=== PATIENT | female | born 1990 | race Native Hawaiian/Other Pacific Islander ===

== ENCOUNTER 2019-06-03 12:43 | Emergency (ER) | payer OTHER, MEDICAID, SELFPAY ==
[2019-06-03 12:48] VITALS: BP 160/89; PULSE 89; RESP 18; TEMP 36.4; O2SAT 99; BMI 33.9
--- NOTE | 2019-06-03 16:07 | PC.NURSE ---
\attempted to bring to room - no answer
== END 2019-06-03 17:39 | disposition left against medical advice (07) ==
PROVIDERS: Emergency Provider Emergency Medicine
DX: R10.9 Unspecified abdominal pain (principal)
CPT/HCPCS: 99281

== ENCOUNTER 2019-12-09 13:45 | Emergency (ER) | payer OTHER, MEDICAID, SELFPAY ==
[2019-12-09 13:51] VITALS: BP 113/64; PULSE 80; RESP 18; TEMP 36.7; O2SAT 98; BMI 33.9
--- NOTE | 2019-12-09 14:00 | DI.RAD.S_ITS ---
PROCEDURE: XR RIBS BI MIN 4V W CXR1V INDICATIONS: Rib pain/SOb TECHNIQUE: Two views of the left ribs and two views of the right ribs were obtained, along with a single view chest. COMPARISON: None. FINDINGS: Surgical changes and devices: None. Bones and chest wall: No acute displaced fractures or dislocations. No suspicious bony lesions. Overlying soft tissues appear unremarkable. Lungs and pleura: No pleural effusions or pneumothorax. Lungs appear clear. Mediastinum: Mediastinal contours appear normal. Heart size is normal. IMPRESSION: No displaced rib fracture. No pleural effusion or pneumothorax. Dictated by: Edward Escalera M.D. on 12/09/2019 at 15:28 Approved by: Edward Escalera M.D. on 12/09/2019 at 15:31
--- NOTE | 2019-12-09 17:18 | DI.RAD.S_ITS ---
PROCEDURE: XR THORACIC SPINE 3V INDICATIONS: pain sp fall TECHNIQUE: 3 views of the thoracic spine were acquired. COMPARISON: None. FINDINGS: Bones: No fractures or dislocations. No suspicious bony lesions. Visualized ribs are intact. Multilevel endplate osteophytes. Soft tissues: No paravertebral stripe thickening. IMPRESSION: Multilevel degenerative disc disease. No acute fracture. No osseous lesion. If symptoms and/or clinical suspicion for pathology persist, further assessment with repeat, or advanced imaging (e.g., CT, MRI, or bone scan) may be helpful for further assessment. Dictated by: Magnolia Talley M.D. on 12/09/2019 at 18:03 Approved by: Magnolia Talley M.D. on 12/09/2019 at 18:04
--- NOTE | 2019-12-09 17:18 | DI.RAD.S_ITS ---
PROCEDURE: XR LUMBAR SPINE 2-3V INDICATIONS: pain sp fall TECHNIQUE: 3 views of the lumbar spine were acquired. COMPARISON: None. FINDINGS: Bones: 5 [id number] vertebrae are present. There is normal bony alignment. No vertebral body compression fractures. No suspicious bony lesions. Mild multilevel endplate osteophytes. Multilevel facet hypertrophy throughout the mid and lower lumbar spine. Soft tissues: Overlying bowel gas pattern is normal. No suspicious soft tissue calcifications. IMPRESSION: Multilevel degenerative disc and facet disease. No acute fracture. No osseous lesion. If symptoms and/or clinical suspicion for pathology persist, further assessment with repeat, or advanced imaging (e.g., CT, MRI, or bone scan) may be helpful for further assessment. Dictated by: Magnolia Talley M.D. on 12/09/2019 at 18:02 Approved by: Magnolia Talley M.D. on 12/09/2019 at 18:03
[2019-12-09 17:46] LABS: UR Morphine/Opiate cutoff 300 Negative (Negative); Ur Creatinine Normal (Normal); Ur Specific Gravity Normal (Normal); Urine Amphetamines Negative (Negative); Urine Barbiturates Negative (Negative); Urine Benzodiazepines Negative (Negative); Urine Cocaine Negative (Negative); Urine MDMA Negative (Negative); Urine Methadone Negative (Negative); Urine Methamphetamines Negative (Negative); Urine Oxycodone Negative (Negative); Urine Phencyclidine Negative (Negative); Urine Tetrahydrocannabinol Negative (Negative); Urine Tricyclic Antidepressant Negative (Negative); Urine pH Normal (Normal)
[2019-12-09] MEDS: LIDOCAINE PATCH 1 EACH ADH..PATCH TOP (18:40)
[2019-12-09] MEDS: KETOROLAC 60 MG/2 ML VIAL IM (18:41)
[2019-12-09] MEDS: CYCLOBENZAPRINE 10 MG TABLET PO (18:41)
[2019-12-09 18:57] VITALS: BP 128/81; PULSE 75; O2SAT 100
[2019-12-09 19:00] VITALS: BP 123/74; PULSE 75; O2SAT 98
--- NOTE | 2019-12-09 19:15 | ED.BACK ---
HPI - Back Pain/Injury <CARLEEN Fu - Last Filed: 12/09/19 21:05> General Chief Complaint: Back Pain/Injury Stated Complaint: Possible Cracked Ribs, SOB, Vomiting Blood Time Seen by Provider: 12/09/19 16:34 Source: patient Mode of arrival: Ambulatory Limitations: no limitations History of Present Illness HPI Narrative: The patient is a 29-year-old female nonsmoker presents with a chief complaint of chest wall pain and possible cracked ribs as well as back pain. She states that she tried to stop her neighbor from falling down the stairs about 2 weeks ago, and her neighbor landed on her. She denies any passing out, or any C-spine tenderness. She states that she has been consistently getting worse since this happened. She estimates that they went down at least 10 steps. This occurred 2 weeks ago and she has not been evaluated since this happened. She states that this weekend she started helping cut and lift would when she started having a lot of stiffness in her back. She states that it hurts to take a deep breath, so she feels like she is short of breath. She denies any other symptoms, any chest pain, numbness, incontinence of bowel or incontinence of bladder. She did know on check-in that she was vomiting blood but denies this on my interview. Related Data Previous Rx's Medication Instructions Recorded cyclobenzaprine 10 mg PO TID PRN #14 tab 12/09/19 ketorolac 10 mg PO TID PRN #15 tab 12/09/19 Allergies Allergy/AdvReac Type Severity Reaction Status Date / Time penicillin G Allergy Unknown Unverified 12/09/19 13:59 Review of Systems <CARLEEN Fu - Last Filed: 12/09/19 21:05> Review of Systems Narrative: GENERAL: Denies chills, fatigue, malaise, fever, sweats. HEENT: Denies sinus pain, ear pain, sore throat, difficulty swallowing, dizziness. RESPIRATORY: See HPI CARDIOVASCULAR: Denies chest pain, palpitations, orthopnea, edema, GASTROINTESTINAL: Denies nausea, vomiting, abdominal pain, diarrhea, constipation, melena. : Denies dysuria, frequency, incontinence, hematuria, urinary retention. MUSCULOSKELETAL: See HPI SKIN: Denies rash, skin lesions, or other NEUROLOGIC: Denies weakness, headache, numbness, change in speech, confusion, seizures, incoordination. PSYCHIATRIC: No concerning psychosocial issues. 12 point review of systems is negative except for those stated above Patient History <Mile VillanuevaLARISSA-STUART - Last Filed: 12/09/19 21:05> Social History Smoking Status: Never smoker Smoking Status: Never smoker Substance Use Type: does not use Exam <Mile VillanuevaJUANITA - Last Filed: 12/09/19 21:05> Narrative Exam Narrative: GENERAL: This is a well-nourished, well-developed patient, in no acute distress HEAD: Atraumatic. Normocephalic. No temporal or scalp tenderness. EYES: Pupils equal round and reactive. Extraocular motions intact. No scleral icterus. No injection or drainage. ENT: Nose without bleeding, purulent drainage or septal hematoma. Wearing a mask. Airway patent. NECK: Trachea midline. No JVD or lymphadenopathy. Supple, nontender, no meningeal signs. CARDIOVASCULAR: Regular rate and rhythm RESPIRATORY: Clear to auscultation. Breath sounds equal bilaterally. No wheezes, rales, or rhonchi. No cough. No increased respiratory effort. No accessory muscle use. Speaking full sentences. GASTROINTESTINAL: Abdomen soft, non-tender, nondistended. No hepato-splenomegaly, or palpable masses. No guarding. EXTREMITIES: No clubbing, cyanosis, or edema. No joint tenderness, effusion, or edema noted. BACK: Cervical spine is Nontender without deformity or crepitance. T and L-spine are tender to palpation, bilateral paraspinal muscle tenderness to palpation over T and L-spine NEURO: AOx3. Stable gait. No gross cranial nerve deficit. SKIN: No rash or erythema on visible skin. No erythema or ecchymosis noted on lower mid back, neck or chest wall. No periorbital ecchymosis. No Nieves signs Initial Vital Signs Initial Vital Signs: Vital Signs Temperature 98.0 F 12/09/19 13:51 Pulse Rate 80 12/09/19 13:51 Respiratory Rate 18 12/09/19 13:51 Blood Pressure 113/64 12/09/19 13:51 Pulse Oximetry 98 12/09/19 13:51 <Rupal Cabrera MD - Last Filed: 12/17/19 08:28> Initial Vital Signs Initial Vital Signs: Vital Signs Temperature 98.0 F 12/09/19 13:51 Pulse Rate 80 12/09/19 13:51 Respiratory Rate 18 12/09/19 13:51 Blood Pressure 113/64 12/09/19 13:51 Pulse Oximetry 98 12/09/19 13:51 Scores <Mile CARLEEN VillanuevaBC - Last Filed: 12/09/19 21:05> GCS Arianna coma scale eye opening: Spontaneous Arianna coma scale verbal response: Orientated Arianna coma scale motor response: Obey commands [place] coma scale total score: 15 Course <JUANITA Fu - Last Filed: 12/09/19 21:05> Orders Ordered: Discontinued Medications Cyclobenzaprine HCl (Flexeril) 10 mg PO NOW ONE Stop: 12/09/19 18:23 Last Admin: 12/09/19 18:41 Dose: 10 mg Documented by: SURESH Ketorolac Tromethamine (Toradol) 60 mg IM NOW ONE Stop: 12/09/19 18:23 Last Admin: 12/09/19 18:41 Dose: 60 mg Documented by: SURESH Lidocaine (Lidoderm) 1 each TOP NOW ONE Stop: 12/09/19 18:23 Last Admin: 12/09/19 18:40 Dose: 1 each Documented by: SURESH Vital Signs Vital signs: Vital Signs - 8 hr 12/09/19 13:51 12/09/19 18:57 12/09/19 19:00 Temperature 98.0 F Pulse Rate 80 75 75 Respiratory Rate 18 Blood Pressure 113/64 128/81 123/74 Pulse Oximetry 98 100 98 12/09/19 19:43 Temperature Pulse Rate 88 Respiratory Rate 16 Blood Pressure 140/90 Pulse Oximetry 99 <Rupal Cabrera MD - Last Filed: 12/17/19 08:28> Orders Ordered: Discontinued Medications Cyclobenzaprine HCl (Flexeril) 10 mg PO NOW ONE Stop: 12/09/19 18:23 Last Admin: 12/09/19 18:41 Dose: 10 mg Documented by: SURESH Ketorolac Tromethamine (Toradol) 60 mg IM NOW ONE Stop: 12/09/19 18:23 Last Admin: 12/09/19 18:41 Dose: 60 mg Documented by: SURESH Lidocaine (Lidoderm) 1 each TOP NOW ONE Stop: 12/09/19 18:23 Last Admin: 12/09/19 18:40 Dose: 1 each Documented by: SURESH Vital Signs Vital signs: Vital Signs - 8 hr 12/09/19 13:51 12/09/19 18:57 12/09/19 19:00 Temperature 98.0 F Pulse Rate 80 75 75 Respiratory Rate 18 Blood Pressure 113/64 128/81 123/74 Pulse Oximetry 98 100 98 12/09/19 19:43 Temperature Pulse Rate 88 Respiratory Rate 16 Blood Pressure 140/90 Pulse Oximetry 99 MDM - Back Pain/Injury <JUANITA Fu - Last Filed: 12/09/19 21:05> Lab Data Labs: Lab Results 12/09/19 Range/Units 17:33 U Opiates 300ng/mL cut Negative (Negative) Ur Oxycodone Screen Negative (Negative) Urine Methadone Screen Negative (Negative) Ur Barbiturates Screen Negative (Negative) U Tricyclic Antidepress Negative (Negative) Ur Phencyclidine Scrn Negative (Negative) Ur Amphetamines Screen Negative (Negative) U Methamphetamines Scrn Negative (Negative) Ur MDMA Scrn (Ecstasy) Negative (Negative) U Benzodiazepines Scrn Negative (Negative) Urine Cocaine Screen Negative (Negative) U Marijuana (THC) Screen Negative (Negative) Point of Care Testing Test Results Negative Urine Dip Bedside Urine Glucose Negative Bedside Urine Bilirubin - Negative Bedside Urine Ketone - Negative Urine Specific [place] 1.025 Bedside Urine Occult Blood - Negative Bedside Urine pH 6.0 Bedside Urine Protein - Negative Bedside Urine Urobilinogen - Negative Bedside Urine Nitrite - Negative Bedside Urine Leukocytes - Negative Esterase Imaging Data Thoracic spine x-ray: Radiologist's Impression: [address] [place] [id number] XRay Report Signed Patient: Lluvia Martinez MMR#: [id number] : 1990Acct:[id number] Age/Sex: 29 / FDate of Service: 12/09/19 Loc: ED Accession Number: [id number] Procedure: XR thoracic spine 3V Ordering Provider: Mile Villanueva PROCEDURE: XR THORACIC SPINE 3V INDICATIONS: pain sp fall TECHNIQUE: 3 views of the thoracic spine were acquired. COMPARISON: None. FINDINGS: Bones: No fractures or dislocations. No suspicious bony lesions. Visualized ribs are intact. Multilevel endplate osteophytes. Soft tissues: No paravertebral stripe thickening. IMPRESSION: Multilevel degenerative disc disease. No acute fracture. No osseous lesion. If symptoms and/or clinical suspicion for pathology persist, further assessment with repeat, or advanced imaging (e.g., CT, MRI, or bone scan) may be helpful for further assessment. Dictated by: Magnolia Talley M.D. on 12/09/2019 at 18:03 Approved by: Magnolia Talley M.D. on 12/09/2019 at 18:04 Lumbar spine x-ray: Radiologist's Impression: [address] [place] [id number] XRay Report Signed Patient: Lluvia Martinez [facility]#: [id number] : 1990Acct:[id number] Age/Sex: 29 / FDate of Service: 12/09/19 Loc: ED Accession Number: [id number] Procedure: XR lumbar spine 2-3V Ordering Provider: Mile Villanueva- PROCEDURE: XR LUMBAR SPINE 2-3V INDICATIONS: pain sp fall TECHNIQUE: 3 views of the lumbar spine were acquired. COMPARISON: None. FINDINGS: Bones: 5 [id number] vertebrae are present. There is normal bony alignment. No vertebral body compression fractures. No suspicious bony lesions. Mild multilevel endplate osteophytes. Multilevel facet hypertrophy throughout the mid and lower lumbar spine. Soft tissues: Overlying bowel gas pattern is normal. No suspicious soft tissue calcifications. IMPRESSION: Multilevel degenerative disc and facet disease. No acute fracture. No osseous lesion. If symptoms and/or clinical suspicion for pathology persist, further assessment with repeat, or advanced imaging (e.g., CT, MRI, or bone scan) may be helpful for further assessment. Dictated by: Magnolia Talley M.D. on 12/09/2019 at 18:02 Approved by: Magnolia Talley M.D. on 12/09/2019 at 18:03 Rib x-ray: Radiologist's Impression: [address] [place] [id number] XRay Report Signed Patient: Lluvia Martinez [facility]#: [id number] : 1990Acct:[id number] Age/Sex: 29 / FDate of Service: 12/09/19 Loc: ED Accession Number: [id number] Procedure: XR ribs BI min 4V w CXR1V Ordering Provider: Rupal Cabrera MD PROCEDURE: XR RIBS BI MIN 4V W CXR1V INDICATIONS: Rib pain/SOb TECHNIQUE: Two views of the left ribs and two views of the right ribs were obtained, along with a single view chest. COMPARISON: None. FINDINGS: Surgical changes and devices: None. Bones and chest wall: No acute displaced fractures or dislocations. No suspicious bony lesions. Overlying soft tissues appear unremarkable. Lungs and pleura: No pleural effusions or pneumothorax. Lungs appear clear. Mediastinum: Mediastinal contours appear normal. Heart size is normal. IMPRESSION: No displaced rib fracture. No pleural effusion or pneumothorax. Dictated by: Edward Escalera M.D. on 12/09/2019 at 15:28 Approved by: Edward Escalera M.D. on 12/09/2019 at 15:31 MDM Narrative Medical decision making narrative: The patient is a 29-year-old female who presents 2 weeks after a fall down some stairs. She is GCS 15 and requesting pain medications immediately upon arrival. Thus drug skin was performed came back negative. Given her pain x-rays were taken of her ribs, T and L-spine. She has no neurological deficits, and this is 2 weeks out from an injury. Her x-rays came back with no acute findings. She feels much improved after the above-stated therapies negative her prescriptions thereof. I encouraged her to follow up with primary care provider in the next few days and come back to emergency department for any acute concerns such as neurological concerns. Patient has no questions or concerns upon discharge and states understanding of the return precautions of any acute concerns as well as follow-up care with a primary care provider. <Rupal Cabrera MD - Last Filed: 12/17/19 08:28> Lab Data Labs: Lab Results 12/09/19 Range/Units 17:33 U Opiates 300ng/mL cut Negative (Negative) Ur Oxycodone Screen Negative (Negative) Urine Methadone Screen Negative (Negative) Ur Barbiturates Screen Negative (Negative) U Tricyclic Antidepress Negative (Negative) Ur Phencyclidine Scrn Negative (Negative) Ur Amphetamines Screen Negative (Negative) U Methamphetamines Scrn Negative (Negative) Ur MDMA Scrn (Ecstasy) Negative (Negative) U Benzodiazepines Scrn Negative (Negative) Urine Cocaine Screen Negative (Negative) U Marijuana (THC) Screen Negative (Negative) Point of Care Testing Test Results Negative Urine Dip Bedside Urine Glucose Negative Bedside Urine Bilirubin - Negative Bedside Urine Ketone - Negative Urine Specific [place] 1.025 Bedside Urine Occult Blood - Negative Bedside Urine pH 6.0 Bedside Urine Protein - Negative Bedside Urine Urobilinogen - Negative Bedside Urine Nitrite - Negative Bedside Urine Leukocytes - Negative Esterase Discharge Plan Departure Patient Disposition: Home Clinical Impression: Lumbar back pain, Muscle spasm Thoracic back pain Qualifiers: Chronicity: acute Back pain laterality: bilateral Qualified Code(s): M54.6 - Pain in thoracic spine Discharge Date/Time: 12/09/19 19:51 Instructions: DI for Low Back Pain, DI for Back Spasm, DI for Back Strain or Sprain Activity Restrictions/Additional Instructions: As I discussed, your x-ray shows no acute fracture. This does not rule out a soft tissue injury such as a ligament or tendon injury. It is important that you follow up with primary care provider, especially if worsening or no improvement. There can be fractures that did not show up on initial x-ray. I have given you a prescription of ketorolac or Toradol. This is an NSAID. Do not combine it with other NSAIDs such as Aleve or ibuprofen. I suggest taking it with some food, as it can irritate your stomach. I also sent a prescription of cyclobenzaprine. This is a muscle relaxer. Please do not take this and drive or take this and drink. Please follow-up with primary care provider in the next few days. I have given you contact information [facility] health human resources safety manager. Please come back to the emergency department for any acute concerns Prescriptions: New ketorolac 10 mg tablet 10 mg PO TID PRN (Reason: pain) Qty: 15 RF: 0 cyclobenzaprine 10 mg tablet 10 mg PO TID PRN (Reason: muscle spasm) Qty: 14 RF: 0 Referrals: [facility] [Outside] <Rupal Cabrera MD - Last Filed: 12/17/19 08:28> [facility]: I was immediately available in the department for consultation throughout this patient's visit. I agree with documentation as above. Rupal Cabrera MD
[2019-12-09 19:43] VITALS: BP 140/90; PULSE 88; RESP 16; O2SAT 99
== END 2019-12-09 19:51 | disposition home or self-care (01) ==
PROVIDERS: Emergency Provider Nurse Practitioner Family
DX: M54.6 Pain in thoracic spine (principal); M62.830 Muscle spasm of back
CPT/HCPCS: 71111; 72072; 72100; 80305; 81003; 81025; 96372; 99283; 99284; J1885

== ENCOUNTER 2021-02-12 21:07 | Emergency (ER) | payer OTHER, MEDICAID, SELFPAY ==
[2021-02-12 21:12] VITALS: BP 182/110; PULSE 98; RESP 18; TEMP 36.9; O2SAT 99; BMI 38.7
--- NOTE | 2021-02-12 22:18 | ED_ITS ---
HPI - GI Bleed General Chief complaint: GI Bleed Stated complaint: rectal bleeding Time Seen by Provider: 02/12/21 21:23 Source: patient Mode of arrival: Ambulatory Limitations: no limitations History of Present Illness HPI Narrative: This is a 30-year-old female comes to the emergency department with complaint of difficulty with urination. Patient states she has not urinated for least 24-28 hours. Patient states she feels like she needs to urinate. She states that nothing seems to come she has not had a dribbling or leakage. She does not have pain. Patient denies any recent fevers. No chest pain or shortness of breath. No nausea or vomiting. She has had some blood oozing from the rectal area and had some pain recently particularly with wiping she has had hemorrhoids before but states this feels different. She had not appreciated any hematuria before, dysuria or frequency but does have a sense of urgency but no urination. No new vaginal bleeding or discharge. Patient states she has a history of a stroke she states that she followed up for this but was never placed on any medications. She denies any major surgeries. She is allergic to penicillin. She has a medical card that she presents that shows she also has a history of anemia. Related Data Previous Rx's Medication Instructions Recorded cyclobenzaprine 10 mg tablet 10 mg PO TID PRN #14 tab 12/09/19 ketorolac 10 mg tablet 10 mg PO TID PRN #15 tab 12/09/19 zinc oxide-cod liver oil 40 % 1 applic TOPICAL TID #57 g 02/13/21 topical paste (Desitin) Allergies Allergy/AdvReac Type Severity Reaction Status Date / Time penicillin G Allergy Unknown Unverified 02/12/21 21:14 Review of Systems Review of Systems ROS Unobtainable: All systems reviewed & are unremarkable except as noted in HPI and below Patient History Social History Smoking Status: Never smoker Smoking Status: Never smoker Substance Use Type: does not use Exam Narrative Exam Narrative: GENERAL: Alert and oriented x three, obese female in mild distress. HEENT: Head normocephalic, atraumatic, EOMI, pupils reactive, face symmetric, moist mucous membranes NECK: Supple, full range of motion CARDIOVASCULAR: Regular rate and rhythm without murmurs, rubs or gallops. RESPIRATORY: Breath sounds equal bilaterally, no wheezes rales or rhonchi. ABDOMEN: Soft, nontender. Normoactive bowel sounds all 4 quadrants. No guarding or rebound, rigidity, no mass. On rectal exam patient is excoriated there is no obvious internal or external hemorrhoids, no bright red blood, CHESTER as negative but patient does appear have irritation to the skin. : No CVA tenderness EXTREMITIES: Normal range of motion, no clubbing or edema. Neurovascularly intact NEUROLOGICAL: Cranial nerves II through XII grossly intact. Moving all extremities SKIN: Warm, dry, no petechiae, no rashes or lesions. Initial Vital Signs Initial Vital Signs: Vital Signs Temperature 98.4 F 02/12/21 21:12 Pulse Rate 98 H 02/12/21 21:12 Respiratory Rate 18 02/12/21 21:12 Blood Pressure 182/110 H 02/12/21 21:12 Pulse Oximetry 99 02/12/21 21:12 Course Orders Ordered: ED Orders 02/12/21 22:10 Complete Blood Count AUTO DIFF Stat Comprehensive Metabolic Panel Stat Lipase Stat Partial Thromboplastin Time Stat Prothrombin Time INR Stat 02/13/21 00:37 CT abdomen pelvis w con Stat 02/13/21 00:41 Test Serum,Qual Stat Discontinued Medications Sodium Chloride (Normal Saline 0.9%) 1,000 mls @ 1,000 mls/hr IV BOLUS ONE Stop: 02/12/21 23:18 Last Infusion: 02/12/21 23:40 Dose: 0 mls/hr Documented by: Admin: 02/12/21 22:21 Dose: 1,000 mls/hr Documented by: PJ Vital Signs Vital signs: Vital Signs - 8 hr 02/12/21 21:12 02/13/21 02:43 Temperature 98.4 F Pulse Rate 98 H 89 Respiratory Rate 18 16 Blood Pressure 182/110 H 133/63 Pulse Oximetry 99 97 MDM - GI Bleed Lab Data Result diagrams: 02/12/21 22:10 02/12/21 22:10 Labs: Lab Results 02/12/21 02/12/21 02/12/21 Range/Units 22:10 22:10 22:10 WBC 10.3 (4.5-11.0) X10^3/uL RBC 4.42 (4.0-5.2) X10^6/uL Hgb 12.7 (12.0-16.0) g/dL Hct 38.3 (36-46) % MCV 86.7 (80-100) fL MCH 28.9 (26-34) PG MCHC 33.3 (30-36) % RDW 12.8 (11.6-14.8) % Plt Count 272 (150-400) X10^3/uL Neut % (Auto) 58.4 (50-75) % Lymph % (Auto) 31.6 (25-40) % Charlton % (Auto) 8.1 (3-14) % Eos % (Auto) 0.9 L (2-4) % Baso % (Auto) 1.0 (0-2) % Neut # (Auto) 6000 (9064-3697) /uL Lymph # (Auto) 3300 (3531-0060) /uL Charlton # (Auto) 800 (0-900) /uL Eos # (Auto) 100 (0-450) /uL Baso # (Auto) 100 (0-100) /uL PT 11.5 (10.1-12.7) SECONDS INR 1.0 (0.9-1.3) APTT 34 (26.4-36.2) SECONDS Sodium 141 (137-145) mmol/L Potassium 4.6 (3.4-5.1) mmol/L Chloride 104 (98-107) mmol/L Carbon Dioxide 30 (22-32) mmol/L BUN 13 (7-17) mg/dL Creatinine 0.93 (0.52-1.04) mg/dL Estimated GFR > 60.0 (>60) mL/min BUN/Creatinine Ratio 14.0 (6-22) Glucose 103 H (70-100) mg/dL Calcium 9.6 (8.4-10.2) mg/dL Total Bilirubin 0.6 (0.2-1.3) mg/dL AST 47 H (14-36) IU/L ALT 30 (<35) IU/L Alkaline Phosphatase 49 (38-126) U/L Total Protein 9.0 H (6.3-8.2) g/dL Albumin 4.5 (3.5-5.0) g/dL Globulin 4.5 H (1.7-4.1) g/dL Albumin/Globulin Ratio 1.0 (1.0-2.8) Lipase 181 (23-300) U/L Serum , Qual (Negative) 02/12/21 Range/Units 22:10 WBC (4.5-11.0) X10^3/uL RBC (4.0-5.2) X10^6/uL Hgb (12.0-16.0) g/dL Hct (36-46) % MCV (80-100) fL MCH (26-34) PG MCHC (30-36) % RDW (11.6-14.8) % Plt Count (150-400) X10^3/uL Neut % (Auto) (50-75) % Lymph % (Auto) (25-40) % Charlton % (Auto) (3-14) % Eos % (Auto) (2-4) % Baso % (Auto) (0-2) % Neut # (Auto) (4076-6516) /uL Lymph # (Auto) (0263-5932) /uL Charlton # (Auto) (0-900) /uL Eos # (Auto) (0-450) /uL Baso # (Auto) (0-100) /uL PT (10.1-12.7) SECONDS INR (0.9-1.3) APTT (26.4-36.2) SECONDS Sodium (137-145) mmol/L Potassium (3.4-5.1) mmol/L Chloride (98-107) mmol/L Carbon Dioxide (22-32) mmol/L BUN (7-17) mg/dL Creatinine (0.52-1.04) mg/dL Estimated GFR (>60) mL/min BUN/Creatinine Ratio (6-22) Glucose (70-100) mg/dL Calcium (8.4-10.2) mg/dL Total Bilirubin (0.2-1.3) mg/dL AST (14-36) IU/L ALT (<35) IU/L Alkaline Phosphatase (38-126) U/L Total Protein (6.3-8.2) g/dL Albumin (3.5-5.0) g/dL Globulin (1.7-4.1) g/dL Albumin/Globulin Ratio (1.0-2.8) Lipase (23-300) U/L Serum , Qual Negative (Negative) Imaging Data CT scan - abdomen/pelvis: Radiologist's Impression: [address] [id number] Scan ReportSigned Patient: Shanae Martinez FMR#: [id number]: [id number]:[id number]/Sex: 30 / FDate of Service: 02/13/21Loc: EDAccession Number: [id number]? ? Procedure: CT abdomen pelvis w con Ordering Provider: Mile Carmen D.O. PROCEDURE:? CT KIDNEY URETER BLADDER (KUB) ? INDICATIONS:? urine problems.? no pain. ? TECHNIQUE:? Axial sections were acquired from the lung bases to the pubic symphysis.? Coronal and sagittal reformats were performed.? For radiation dose reduction, the following was used: ?automated exposure control, adjustment of mA and/or kV according to patient size.? ? COMPARISON:? None. ? FINDINGS: ? Lower thorax: The lung bases are clear.? Heart size normal. No hiatal hernia. ? Liver:? Normal in size and attenuation. No contour deformity present. ? Biliary system:? No calcified cholelithiasis or pericholecystic inflammation. No intra or extrahepatic bile duct dilatation. ? Pancreas:? Unremarkable without mass or inflammation evident. ? Spleen:? Normal in size and density. ? Adrenals:? Normal morphology and density. ? Reproductive system:? Intrauterine device in place ? Urinary system:? Normal renal size and attenuation. No renal calculi, hydronephrosis, or solid mass present.? Urinary bladder unremarkable. ? Gastrointestinal system:? The bowel is unremarkable without evidence of bowel obstruction or inflammation. The stomach appears unremarkable. ? Appendix:? Normal appendix identified.? No evidence of appendicitis. ? Peritoneal spaces:? No mesenteric or retroperitoneal adenopathy.? No free air.? No free fluid.? ? Vasculature:? The IVC, aorta and iliac vasculature are unremarkable. ? Abdominal wall:? Abdominal wall intact without evidence of ventral or inguinal hernias. ? Musculoskeletal:? Normal bone mineralization.? No acute fractures.? ? IMPRESSION: ? 1. Unremarkable noncontrast CT abdomen and pelvis. ? Approved by: Baljeet Mcwilliams M.D. on 02/13/2021 at 1:15? MDM Narrative Medical decision making narrative: Patient politely refuses urine straight cath. She has normal renal function, no electrolyte abnormalities and a normal BUN. She does not recall having any urine output for the last greater than 24 hours but with reassuring labs and imaging that does show urine in her bladder I am reassured. Patient does have some rectal irritation. Was given prescription for Desitin but also available [id number] this is likely the source of her bleeding. Patient and I discussed she could have a bladder infection causing her symptoms but she politely refuses a urine straight cath. She is aware she does need to give a urine sample to check for this. Return precautions discussed. All questions answered. Discharge Plan Departure Patient Disposition: Home Clinical Impression: Rectal irritation, Decreased urine output Activity Restrictions/Additional Instructions: You have normal renal function on your labs with no signs of significant dehydration. Your imaging shows some urine in her bladder but not an excessive amount. You may have a bladder infection causing your sense of urgency. Would be appropriate to have a urine sample as you have elected not to have a catheter please follow-up to have 1 checked. There was quite a bit irritation around the opening of your rectum. I would recommend putting Desitin to the affected area after voiding. Prescription sent to [facility] but it is also available over the counter at pharmacies and the grocery store. Warm soaks and a top or showering daily or rinsing with a a warm wet washcloth 2-3 times daily may also be helpful. Please return for worsening symptoms, fevers, if you continue to have difficulty with urination, abdominal, back or flank pain or other new or concerning symptoms. Prescriptions: New Desitin 40 % paste 1 applic topical TID Qty: 57 RF: 0 No Action ketorolac 10 mg tablet 10 mg PO TID PRN (Reason: pain) Qty: 15 RF: 0 cyclobenzaprine 10 mg tablet 10 mg PO TID PRN (Reason: muscle spasm) Qty: 14 RF: 0
[2021-02-12 22:21] LABS: Add Manual Diff / Slide Review NO; Basophils Absolute Auto 100 /uL (0-100); Eosinophils Absolute Auto 100 /uL (0-450); Eosinophils Percent Auto 0.9 % (2-4); Hematocrit 38.3 % (36-46); Hemoglobin 12.7 g/dL (12.0-16.0); Lymphocytes Absolute Auto 3300 /uL (1100-4500); Lymphocytes Percent Auto 31.6 % (25-40); Mean Corpuscular HGB Conc 33.3 % (30-36); Mean Corpuscular Hemoglobin 28.9 PG (26-34); Mean Corpuscular Volume 86.7 fL (80-100); Monocytes Absolute Auto 800 /uL (0-900); Monocytes Percent Auto 8.1 % (3-14); Neutrophils Absolute Auto 6000 /uL (1500-7000); Neutrophils Percent Auto 58.4 % (50-75); Platelet Count 272 X10^3/uL (150-400); Red Blood Cell Count 4.42 X10^6/uL (4.0-5.2); Red Cell Distribution Width 12.8 % (11.6-14.8); White Blood Cell Count 10.3 X10^3/uL (4.5-11.0)
[2021-02-12] MEDS: SODIUM CHLORIDE 0.9% 1,000 ML 1000 ML IV (22:21)
[2021-02-12 22:28] LABS: Prothrombin Time 11.5 SECONDS (10.1-12.7)
[2021-02-12 22:31] LABS: PTT Partial Thromboplastin Tim 34 SECONDS (26.4-36.2)
[2021-02-12 22:33] LABS: Alanine Aminotransferase 30 IU/L (<35); Albumin 4.5 g/dL (3.5-5.0); Alkaline Phosphatase 49 U/L (38-126); Bilirubin Total 0.6 mg/dL (0.2-1.3); Blood Urea Nitrogen 13 mg/dL (7-17); Calcium 9.6 mg/dL (8.4-10.2); Carbon Dioxide 30 mmol/L (22-32); Chloride 104 mmol/L (98-107); Estimated Glomerular Filt Rate > 60.0 mL/min (>60); Globulin 4.5 g/dL (1.7-4.1); Glucose 103 mg/dL (70-100); Lipase 181 U/L (23-300); Sodium 141 mmol/L (137-145)
[2021-02-12 22:40] LABS: HEMOLYSIS 112 (0-50)
[2021-02-12 22:43] LABS: Aspartate Aminotransferase 47 IU/L (14-36); Potassium 4.6 mmol/L (3.4-5.1)
--- NOTE | 2021-02-13 00:37 | DI.CT.S_ITS ---
PROCEDURE: CT KIDNEY URETER BLADDER (KUB) INDICATIONS: urine problems. no pain. TECHNIQUE: Axial sections were acquired from the lung bases to the pubic symphysis. Coronal and sagittal reformats were performed. For radiation dose reduction, the following was used: automated exposure control, adjustment of mA and/or kV according to patient size. COMPARISON: None. FINDINGS: Lower thorax: The lung bases are clear. Heart size normal. No hiatal hernia. Liver: Normal in size and attenuation. No contour deformity present. Biliary system: No calcified cholelithiasis or pericholecystic inflammation. No intra or extrahepatic bile duct dilatation. Pancreas: Unremarkable without mass or inflammation evident. Spleen: Normal in size and density. Adrenals: Normal morphology and density. Reproductive system: Intrauterine device in place Urinary system: Normal renal size and attenuation. No renal calculi, hydronephrosis, or solid mass present. Urinary bladder unremarkable. Gastrointestinal system: The bowel is unremarkable without evidence of bowel obstruction or inflammation. The stomach appears unremarkable. Appendix: Normal appendix identified. No evidence of appendicitis. Peritoneal spaces: No mesenteric or retroperitoneal adenopathy. No free air. No free fluid. Vasculature: The IVC, aorta and iliac vasculature are unremarkable. Abdominal wall: Abdominal wall intact without evidence of ventral or inguinal hernias. Musculoskeletal: Normal bone mineralization. No acute fractures. IMPRESSION: 1. Unremarkable noncontrast CT abdomen and pelvis. Approved by: Baljeet Mcwilliams M.D. on 02/13/2021 at 1:15
[2021-02-13 01:05] LABS: Pregnancy Test Serum,Qual Negative (Negative)
[2021-02-13 02:43] VITALS: BP 133/63; PULSE 89; RESP 16; O2SAT 97
== END 2021-02-13 02:52 | disposition home or self-care (01) ==
PROVIDERS: Emergency Provider Emergency Medicine
DX: K62.89 Other specified diseases of anus and rectum (principal); R34 Anuria and oliguria
CPT/HCPCS: 36415; 51798; 74177; 80053; 83690; 84703; 85025; 85610; 85730; 96360; 99284; Q9967

== ENCOUNTER 2022-06-09 13:03 | Emergency (ER) | payer OTHER, MEDICAID, SELFPAY ==
[2022-06-09 13:49] VITALS: BP 159/103; PULSE 100; RESP 18; TEMP 37; O2SAT 98; BMI 37.1
--- NOTE | 2022-06-09 15:33 | ED.EAR ---
HPI - Ear Problem General Chief complaint: Ear Stated complaint: ruptured both eardrum clear liquid coming out Time Seen by Provider: 06/09/22 15:12 Source: patient Mode of arrival: Ambulatory History of Present Illness HPI Narrative: This is a 31 year female presents to the emergency department complaining of bilateral ear pain which has returned after she took antibiotics for 6 days for bilateral ear infection. She denies remember what medication was, states that she has anaphylaxis allergy to penicillin states this was approximally a week and a half ago. Her primary care provider is Maddy CAMPBELL, states that she has scheduled follow-up with ear nose [facility] throat for July but states she can not wait that long. She does not take any antihistamines, is not currently on an antibiotic, states that the pain is severe. Denies discharge coming from her ears but states that the pain got a lot worse. She states that she has ear canal pain but denies tenderness to manipulation of the pinna of her ear. She denies nausea, vomiting, denies neck pain but states that she has swollen lymph nodes. She denies fever, chills, vision changes, headaches or other symptom. Related Data Previous Rx's Medication Instructions Recorded cyclobenzaprine 10 mg tablet 10 mg PO TID PRN muscle spasm #14 12/09/19 tabs ketorolac 10 mg tablet 10 mg PO TID PRN pain #15 tabs 12/09/19 zinc oxide-cod liver oil 40 % 1 applic topical TID #57 grams 02/13/21 topical paste (Desitin) cefdinir 300 mg capsule 300 mg PO BID 10 days #20 caps 06/09/22 cetirizine 10 mg tablet 20 mg PO BEDTIME #40 tabs 06/09/22 Allergies Allergy/AdvReac Type Severity Reaction Status Date / Time penicillin G Allergy Unknown Unverified 02/12/21 21:14 gabapentin Allergy Rash Verified 06/09/22 13:55 prednisone AdvReac Unknown Verified 06/09/22 13:55 Review of Systems Review of Systems ROS Unobtainable: All systems reviewed & are unremarkable except as noted in HPI and below Patient History Social History Smoking Status: Never smoker Smoking Status: Never smoker Substance Use Type: does not use Exam Initial Vital Signs Initial Vital Signs: Vital Signs Temperature 98.6 F 06/09/22 13:49 Pulse Rate 100 H 06/09/22 13:49 Respiratory Rate 18 06/09/22 13:49 Blood Pressure 159/103 H 06/09/22 13:49 Pulse Oximetry 98 06/09/22 13:49 Oxygen Delivery Method Room Air 06/09/22 13:49 Reviewed vitals signs and nursing notes. General: cooperative, comfortable, in no acute distress, well groomed HEENT: symmetrical facial expressions, moist mucous membranes, bilateral external ear canals are normal without tenderness with manipulation, there is no discharge, patient has anterior cervical lymphadenopathy, neck is supple, full range of motion without deficit, no meningeal signs, mastoids are nontender to palpation bilaterally, bilateral TMs are bulging, erythematous and suppurative without rupture. Cardiovascular: Initially patient was tachycardic and this is likely related to pain, now with regular rate and rhythm, no peripheral edema, warm extremities, afebrile Skin: brisk capillary refill, without pallor or erythema Neuro: normal speech and cognition, A&O x3, ambulatory, clear speech complains of muffled hearing however she is hearing me loud and clear. Psych: mental status is grossly normal, congruent mood, normal affect, pleasant and cooperative Course Orders Ordered: Discontinued Medications Ceftriaxone Sodium (Ceftriaxone 2,000 Mg Vial) 1,000 mg IM NOW ONE Stop: 06/09/22 15:22 Dexamethasone (Dexamethasone 10 Mg/Ml Vial) 10 mg PO NOW ONE Stop: 06/09/22 15:20 Ketorolac Tromethamine (Ketorolac 10 Mg Tablet) 10 mg PO NOW ONE Stop: 06/09/22 15:20 Lidocaine HCl (Lidocaine 1% (Pf) 5 Ml) 4.2 ml INJ NOW ONE Stop: 06/09/22 15:22 Vital Signs Vital signs: Vital Signs - 8 hr 06/09/22 13:49 Temperature 98.6 F Pulse Rate 100 H Respiratory Rate 18 Blood Pressure 159/103 H Pulse Oximetry 98 Oxygen Delivery Method Room Air Medical Decision Making [facility] Narrative Medical decision making narrative: Chief Complaint: Bilateral ear pain Independent historian: Patient Differential diagnoses include but are not limited to: Otitis media, ruptured tympanic membrane, resistant bacteria, middle ear effusion, mastoiditis I have independently reviewed the patient's vital signs and nursing notes as well as prior records if available. No evidence of patient having cephalosporins in the past. Patient states that she is tolerant to all steroids but not prednisone. States reaction prednisone caused her to drive slowly. Patient's pain was treated with Toradol, she is nontoxic appearing, without TM rupture bilaterally, she has bulging, erythematous and suppurative TMs bilaterally. Encourage patient to follow-up with Dr. Dior from [facility] for recheck and to tell him that it is more urgent if she is having worsening of her symptoms. She was unable to get into ear nose [facility] throat [place] until July. She had antibiotics for 6 days, had recurrence of otitis media bilaterally without rupture. I placed her on cefdinir b.i.d. times 10 days and gave her 1 g IM ceftriaxone in the emergency department, if patient returns with this pain, she can receive ceftriaxone instead of cefdinir x3 days however I was concerned about recurrence. I prescribed for patient cetirizine as well to decongestant middle ear and encouraged to stay hydrated use Tylenol ibuprofen for pain. Social considerations that may affect disposition: none Questions are addressed and there is agreement with the plan and for follow-up. Patient is appropriate for outpatient management. MIPS: This encounter doesn't have any diagnosis' associated with MIPS criteria. Discharge Plan Departure Patient Disposition: Home Clinical Impression: Bilateral acute suppurative otitis media Qualifiers: Recurrence: recurrent Spontaneous tympanic membrane rupture: without spontaneous rupture Qualified Code(s): H66.006 - Acute suppurative otitis media without spontaneous rupture of ear drum, recurrent, bilateral Instructions: Middle Ear Infection Activity Restrictions/Additional Instructions: *You have been diagnosed with bilateral ear infection without rupture of the membrane. Please start taking Zyrtec 20 mg at night for congestion of the middle ear until you are fully better. Please stay hydrated, drink plenty of water, take Tylenol ibuprofen as needed for your pain every 6 hours. Please start taking this oral antibiotic morning and night for the next 10 days and schedule follow-up with Dr. Dior from [facility]. Please let them know that you were seen in the Emergency Department and he would like to schedule follow-up urgently. Please complete this medication and do not miss any doses. I hope you start feeling better soon. *What to do: *Please continue to take your regular medications as directed. [x ] New medication prescriptions sent to your pharmacy: [ [facility]] [ ] New medication written as a paper prescription [ ] No new medications given *Please follow up with your primary care provider in 2-3 days, call for an appointment. Let them know you were seen in the Emergency Department and that we asked that you be seen for follow-up. We will electronically transmit a record of today's note if your PCP is in our system *If you do not have a primary care provider please contact [phone] to establish care with one of the [facility] primary care providers. *Return to Emergency Department if you should have any new, worsening, or concerning symptoms, such as [fever greater than 101F, chills, worsening pain, persistent vomiting or other bothersome symptoms]. Prescriptions: New cefdinir 300 mg capsule 300 mg PO BID 10 Days Qty: 20 0RF cetirizine 10 mg tablet 20 mg PO BEDTIME Qty: 40 0RF No Action ketorolac 10 mg tablet 10 mg PO TID PRN (Reason: pain) Qty: 15 0RF cyclobenzaprine 10 mg tablet 10 mg PO TID PRN (Reason: muscle spasm) Qty: 14 0RF Desitin 40 % paste 1 applic topical TID Qty: 57 0RF Referrals: Devante Dior MD [Physician] - 5-7 days Nena Coronado PA-C [Primary Care Provider] - Stand Alone Forms: Patient Portal/API
[2022-06-09] MEDS: KETOROLAC 10 MG TABLET PO (15:44)
[2022-06-09] MEDS: DEXAMETHASONE 10 MG/ML VIAL PO (15:53)
[2022-06-09] MEDS: cefTRIAXone 2,000 MG VIAL 1000 MG IM (15:54)
[2022-06-09 16:22] VITALS: BP 132/68; PULSE 89; O2SAT 100
== END 2022-06-09 16:40 | disposition home or self-care (01) ==
PROVIDERS: Emergency Provider Nurse Practitioner Critical Care Medicine; PCP Physician Assistant
DX: H66.006 Acute suppurative otitis media without spontaneous rupture of ear drum, recurrent, bilateral (principal)
CPT/HCPCS: 96372; 99283; J0696; J1100

== ENCOUNTER 2023-06-12 13:58 | Emergency (ER) | payer OTHER, MEDICAID, SELFPAY ==
[2023-06-12 14:18] VITALS: BP 147/94; PULSE 90; RESP 16; TEMP 36.8; O2SAT 96; BMI 40.3
[2023-06-12 15:15] LABS: Influenza A - CEPHEID Flu A NEGATIVE (NEGATIVE); Influenza B - CEPHEID Flu B POSITIVE (NEGATIVE); Respiratory Syncytial Virus Negative (Negative)
[2023-06-12 15:18] LABS: COVID-19 CEPHEID 4-PLEX PCR Negative (Negative)
[2023-06-12 15:28] VITALS: BP 155/60; PULSE 88; RESP 18; TEMP 36.8; O2SAT 95
--- NOTE | 2023-06-12 15:50 | ED_ITS ---
<Statement entered by Ender Hobson MD - 06/12/23 18:34> I was available for consultation during this patient's time in the ER but not consulted. My review of this chart is my first interaction with this patient's presentation. HPI - URI/Sore Throat General Chief Complaint: Upper Respiratory Symptoms Stated Complaint: chest px, headache, body aches, little appetite Time Seen by Provider: 06/12/23 14:39 Source: patient and family Mode of arrival: Ambulatory History of Present Illness HPI Narrative: 32-year-old female presents to the ED with 1 week of flu-like symptoms. Patient complains of all-over myalgias, feeling hot and cold, cough, bilateral ear pain, sore throat. No shortness of breath, chest pain, nausea, vomiting, diarrhea. Related Data Previous Rx's Medication Instructions Recorded cyclobenzaprine 10 mg tablet 10 mg PO TID PRN muscle spasm #14 12/09/19 tabs ketorolac 10 mg tablet 10 mg PO TID PRN pain #15 tabs 12/09/19 zinc oxide-cod liver oil 40 % 1 applic topical TID #57 grams 02/13/21 topical paste (Desitin) cetirizine 10 mg tablet 20 mg (2 x 10 mg) PO BEDTIME #40 06/09/22 tabs albuterol sulfate 90 mcg/actuation 2 puff inhalation Q6H PRN 06/12/23 aerosol inhaler shortness of breath or wheezing #6.7 grams amoxicillin 875 mg tablet 875 mg PO Q12H 5 days #10 tabs 06/12/23 benzonatate 200 mg capsule 200 mg PO TID PRN cough #30 caps 06/12/23 Allergies Allergy/AdvReac Type Severity Reaction Status Date / Time penicillin G Allergy Unknown Verified 06/09/22 15:42 gabapentin Allergy Rash Verified 06/09/22 15:42 prednisone AdvReac Unknown Verified 06/09/22 15:42 Review of Systems Constitutional Constitutional: Reports body ache(s), Denies chills, Reports fatigue, Denies fever(s), Denies frequent falls, Denies lethargy, Reports poor appetite and Denies weakness Eyes Eyes: Denies change in vision, Denies eye discharge, Denies irritation and Denies loss of vision ENT Ears, Nose, Mouth, and Throat: Denies change in voice, Denies dizziness, Reports otalgia, Denies neck pain, Reports sore throat and Denies throat swelling Cardiovascular Cardiovascular: Denies chest pain, Denies irregular heart rhythm, Denies lightheadedness, Denies palpitations, Denies dyspnea, Denies dyspnea on exertion and Denies orthopnea Respiratory Respiratory: Reports cough, Denies dyspnea, Denies dyspnea on exertion and Denies wheezing Gastrointestinal Gastrointestinal: Denies abdominal pain, Denies change in bowel habits, Denies diarrhea, Denies nausea and Denies vomiting Musculoskeletal Musculoskeletal: Denies neck pain and Denies numbness Integumentary/Breasts Skin/Breast: Denies pruritus, Denies erythema, Denies rash and Denies wounds Neurologic Neurologic: Denies behavioral changes, Denies confusion, Denies dizziness, Denies frequent falls, Denies loss of vision, Denies numbness and Denies weakness Psychiatric Psychiatric: Denies anxiety, Denies behavioral changes, Denies confusion, Denies depression, Denies homicidal ideation and Denies suicidal ideation Endocrine Endocrine: Reports fatigue, Denies flushing and Denies palpitations Hematologic/Lymphatic Hematologic/Lymphatic: Denies easy bruising Allergic/Immunologic Allergic/Immunologic: Denies urticaria, Denies throat swelling and Denies wheezing Patient History Social History Smoking Status: Never smoker Smoking Status: Never smoker Substance Use Type: does not use Exam Narrative Exam Narrative: Const General:?cooperative, healthy appearing and comfortable [facility] Head:?normal to inspection Ears:?hearing grossly normal bilaterally; bilateral tympani erythematous and bulging Nose:?external nose normal Face and sinus:?normal facial exam and sinuses nontender Mouth:?oral mucosae normal Throat:?posterior oropharynx normal Eyes General:?appearance normal, both eyes and all related structures Neck Neck:?normal visual inspection and no lymphadenopathy noted Resp Effort & Inspection:?normal respiratory effort Auscultation:?clear to auscultation bilaterally Cardio Rate:?regular rate Rhythm:?regular rhythm Neuro General:?patient alert, patient awake and patient oriented x3 Initial Vital Signs Initial Vital Signs: Vital Signs Temperature 98.3 F 06/12/23 14:18 Pulse Rate 90 06/12/23 14:18 Respiratory Rate 16 06/12/23 14:18 Blood Pressure 147/94 H 06/12/23 14:18 Pulse Oximetry 96 06/12/23 14:18 Oxygen Delivery Method Room Air 06/12/23 14:18 Course Orders Ordered: ED Orders 06/12/23 14:22 Covid-19 + FLU A/B + RSV - PCR Stat Vital Signs Vital signs: Vital Signs - 8 hr 06/12/23 14:18 06/12/23 15:28 Temperature 98.3 F 98.3 F Pulse Rate 90 88 Respiratory Rate 16 18 Blood Pressure 147/94 H 155/60 H Pulse Oximetry 96 95 Oxygen Delivery Method Room Air Room Air MDM - URI/Sore Throat Lab Data Labs: Lab Results 06/12/23 Range/Units 14:22 SARS-CoV-2 (PCR) Negative (Negative) Influenza A (RT-PCR) Flu a negative (NEGATIVE) Influenza B (RT-PCR) Flu b positive H (NEGATIVE) RSV (PCR) Negative (Negative) MDM Narrative Medical decision making narrative: 32-year-old female presents to the ED with 1 week of flu-like symptoms. Patient is positive for influenza B. physical exam also consistent with otitis media. Prescribed antibiotics, Tessalon Perles, albuterol. Recommend Tylenol for aches and pains. ED return precautions discussed with patient. Patient verbalized understanding. Medical records reviewed: Yes Discharge Plan Departure Patient Disposition: Home Clinical Impression: Influenza B Otitis media Qualifiers: Otitis media type: unspecified Chronicity: acute Qualified Code(s): H66.90 - Otitis media, unspecified, unspecified ear Instructions: Middle Ear Infection, DI for Influenza -- Adult Activity Restrictions/Additional Instructions: You were evaluated in the ED today for ear pain and flu-like symptoms. You tested positive for influenza B today. You were also diagnosed with a ear infection for which you are being prescribed antibiotics. You are being prescribed Tessalon Perles for cough and albuterol for wheezing which you can use as needed. Make sure to drink plenty of water, take Tylenol for aches and pains. Return to the ED if you have worsening symptoms, chest pain, shortness of breath Prescriptions: New amoxicillin 875 mg tablet 875 mg PO Q12H 5 Days Qty: 10 0RF benzonatate 200 mg capsule 200 mg PO TID PRN (Reason: cough) Qty: 30 0RF albuterol sulfate 90 mcg/actuation HFA aerosol inhaler 2 puff inhalation Q6H PRN (Reason: shortness of breath or wheezing) Qty: 6.7 0RF No Action ketorolac 10 mg tablet 10 mg PO TID PRN (Reason: pain) Qty: 15 0RF cyclobenzaprine 10 mg tablet 10 mg PO TID PRN (Reason: muscle spasm) Qty: 14 0RF Desitin 40 % paste 1 applic topical TID Qty: 57 0RF cetirizine 10 mg tablet 20 mg PO BEDTIME Qty: 40 0RF Referrals: Nena Coronado PA-C [Primary Care Provider] - Stand Alone Forms: Patient Portal/API
== END 2023-06-12 16:26 | disposition home or self-care (01) ==
PROVIDERS: Emergency Provider Student in an Organized Health Care Education/Training Program; PCP Physician Assistant
DX: J10.1 Influenza due to other identified influenza virus with other respiratory manifestations (principal); H66.90 Otitis media, unspecified, unspecified ear; Z20.822 Contact with and (suspected) exposure to COVID-19
CPT/HCPCS: 0241U; 99281; 99282

== ENCOUNTER 2024-04-04 16:33 | Emergency (ER) | payer OTHER, SELFPAY ==
[2024-04-04 16:36] VITALS: BP 146/95; PULSE 90; RESP 18; TEMP 36.6; O2SAT 97; BMI 40.3
[2024-04-04 17:47] LABS: Add Manual Diff / Slide Review NO; Basophils Absolute Auto 100 /uL (0-100); Basophils Percent Auto 0.9 % (0-2); Eosinophils Absolute Auto 200 /uL (0-450); Eosinophils Percent Auto 1.6 % (2-4); Hematocrit 41.2 % (36-46); Hemoglobin 13.4 g/dL (12.0-16.0); Lymphocytes Absolute Auto 3800 /uL (1100-4500); Lymphocytes Percent Auto 39.2 % (25-40); Mean Corpuscular HGB Conc 32.5 % (30-36); Mean Corpuscular Hemoglobin 28.4 PG (26-34); Mean Corpuscular Volume 87.4 fL (80-100); Monocytes Absolute Auto 900 /uL (0-900); Monocytes Percent Auto 9.1 % (3-14); Neutrophils Absolute Auto 4700 /uL (1500-7000); Neutrophils Percent Auto 49.2 % (50-75); Platelet Count 303 X10^3/uL (150-400); Red Blood Cell Count 4.71 X10^6/uL (4.0-5.2); Red Cell Distribution Width 13.9 % (11.6-14.8); White Blood Cell Count 9.6 X10^3/uL (4.5-11.0)
[2024-04-04 17:57] LABS: Alanine Aminotransferase 29 IU/L (<35); Albumin 4.3 g/dL (3.5-5.0); Albumin Globulin Ratio 0.9 (1.0-2.8); Alkaline Phosphatase 61 U/L (38-126); Aspartate Aminotransferase 41 IU/L (14-36); BUN Creatinine Ratio 12.9 (6-22); Bilirubin Total 0.6 mg/dL (0.2-1.3); Blood Urea Nitrogen 12 mg/dL (7-17); Calcium 9.2 mg/dL (8.4-10.2); Carbon Dioxide 30 mmol/L (22-32); Chloride 102 mmol/L (98-107); Estimated Glomerular Filt Rate > 60 mL/min (>60); Globulin 4.8 g/dL (1.7-4.1); Glucose 80 mg/dL (70-100); HEMOLYSIS < 15 (0-50); Lipase 156 U/L (23-300); Potassium 4.1 mmol/L (3.4-5.1); Sodium 137 mmol/L (137-145); Total Protein 9.1 g/dL (6.3-8.2)
--- NOTE | 2024-04-04 18:06 | DI.CT.S_ITS ---
PROCEDURE: CT ABDOMEN PELVIS W CON INDICATIONS: constipation vs obstruction TECHNIQUE: After the administration of intravenous contrast, axial sections acquired from the lung bases to the pubic symphysis. Coronal and sagittal reformats were performed. For radiation dose reduction, the following was used: automated exposure control, adjustment of mA and/or kV according to patient size. COMPARISON: [facility], CT, CT KIDNEY URETER BLADDER (KUB), 02/13/2021, 1:12. FINDINGS: Image quality: Diagnostic. Lower Chest: No significant findings. ABDOMEN: Liver: No solid mass. Liver is hypoattenuating, compatible with diffuse fatty infiltration. Gallbladder: No radiopaque gallstones or wall thickening. Biliary ducts: No biliary dilation. Pancreas: No ductal dilation. Spleen: Size is within normal limits. Adrenal Glands: No adrenal nodules. Kidneys and Ureters: No hydronephrosis. No solid mass. No complex renal cystic lesion which requires follow up. Stomach and Bowel: Normal retrocecal appendix. Small and large bowel loops are nondistended. Mild colonic stool. Peritoneum: No abnormal intraperitoneal fluid. No free air. Ventral Wall: No significant ventral hernia. Abdominal Nodes: No retroperitoneal or mesenteric adenopathy by size criteria. Vessels: Aorta and inferior vena cava are normal in size. PELVIS: Pelvic Organs: Intrauterine device is seen in expected position. Ovaries are symmetric in size. Bladder: No bladder wall thickening, accounting for underdistention. Pelvic Nodes: No enlarged lymph nodes. Miscellaneous: No inguinal hernias are seen. Bones: No aggressive osseous abnormality. IMPRESSION: 1. No acute abnormality identified in the abdomen or pelvis. Mild colonic stool. Normal appendix. No renal or ureteral calculus. 2. Diffuse hepatic steatosis. Approved by: Edward Escalera M.D. on 04/04/2024 at 19:14
[2024-04-04 18:21] LABS: Pregnancy Test Serum,Qual Negative (Negative)
[2024-04-04 19:25] VITALS: PULSE 91; O2SAT 97
[2024-04-04 19:26] VITALS: BP 123/69; PULSE 88; O2SAT 96
[2024-04-04 19:30] VITALS: PULSE 83; O2SAT 96
--- NOTE | 2024-04-04 19:45 | ED.GENADULT ---
HPI - General Adult General Chief complaint: Abdominal Pain Stated complaint: sent by PCP constipation x10 days Time Seen by Provider: 04/04/24 17:31 Source: patient Mode of arrival: Ambulatory Limitations: no limitations History of Present Illness HPI narrative: Patient is a 33-year-old female. Has a follow-up appointment with her primary doctor scheduled for tomorrow. She states she has not had a bowel movement in 10 days. Has tried [id number] laxatives and stool softeners. This morning she started to vomit. No prior abdominal surgeries. No urinary symptoms. She contacted her primary doctor's office that she come to the emergency department for further evaluation. Related Data Previous Rx's Medication Instructions Recorded cyclobenzaprine 10 mg tablet 10 mg PO TID PRN muscle spasm #14 12/09/19 tabs ketorolac 10 mg tablet 10 mg PO TID PRN pain #15 tabs 12/09/19 zinc oxide-cod liver oil 40 % 1 applic topical TID #57 grams 02/13/21 topical paste (Desitin) cetirizine 10 mg tablet 20 mg (2 x 10 mg) PO BEDTIME #40 06/09/22 tabs albuterol sulfate 90 mcg/actuation 2 puff inhalation Q6H PRN 06/12/23 aerosol inhaler shortness of breath or wheezing #6.7 grams benzonatate 200 mg capsule 200 mg PO TID PRN cough #30 caps 06/12/23 Allergies Allergy/AdvReac Type Severity Reaction Status Date / Time penicillin G Allergy Unknown Verified 06/09/22 15:42 gabapentin Allergy Rash Verified 06/09/22 15:42 prednisone AdvReac Unknown Verified 06/09/22 15:42 steroids Allergy Hallucinati Uncoded 04/04/24 16:36 ng Review of Systems Review of Systems ROS Unobtainable: All systems reviewed & are unremarkable except as noted in HPI and below Patient History Social History Smoking Status: Never smoker Smoking Status: Never smoker Exam Initial Vital Signs Initial Vital Signs: Vital Signs Temperature 98 F 04/04/24 16:36 Pulse Rate 90 04/04/24 16:36 Respiratory Rate 18 04/04/24 16:36 Blood Pressure 146/95 H 04/04/24 16:36 Pulse Oximetry 97 04/04/24 16:36 Oxygen Delivery Method Room Air 04/04/24 16:36 Const General: cooperative, comfortable and No ill appearing Resp Effort & Inspection: normal respiratory effort Cardio Rate: regular rate GI Inspection: non-distended Course Orders Ordered: ED Orders 04/04/24 17:34 Complete Blood Count AUTO DIFF Stat Comprehensive Metabolic Panel Stat Lipase Stat Test Serum,Qual Stat 04/04/24 18:06 CT abdomen pelvis w con Stat Discontinued Medications Ondansetron HCl (Ondansetron 4 Mg/2 Ml Inj) 4 mg IV NOW PRN PRN Reason: Nausea And Vomiting Ondansetron HCl (Ondansetron 4 Mg Odt) 4 mg PO NOW PRN PRN Reason: Nausea And Vomiting Vital Signs Vital signs: Vital Signs - 8 hr 04/04/24 19:25 04/04/24 19:26 04/04/24 19:26 Pulse Rate 91 H 88 Blood Pressure 123/69 Pulse Oximetry 97 96 04/04/24 19:30 Pulse Rate 83 Blood Pressure Pulse Oximetry 96 Medical Decision Making Lab Data Lab results reviewed: Yes I reviewed the patient's lab results. 04/04/24 17:34 04/04/24 17:34 Labs: Lab Results 04/04/24 Range/Units 17:34 WBC 9.6 (4.5-11.0) X10^3/uL RBC 4.71 (4.0-5.2) X10^6/uL Hgb 13.4 (12.0-16.0) g/dL Hct 41.2 (36-46) % MCV 87.4 (80-100) fL MCH 28.4 (26-34) PG MCHC 32.5 (30-36) % RDW 13.9 (11.6-14.8) % Plt Count 303 (150-400) X10^3/uL Neut % (Auto) 49.2 L (50-75) % Lymph % (Auto) 39.2 (25-40) % [place] % (Auto) 9.1 (3-14) % Eos % (Auto) 1.6 L (2-4) % Baso % (Auto) 0.9 (0-2) % Neut # (Auto) 4700 (8837-0493) /uL Lymph # (Auto) 3800 (4361-6779) /uL [place] # (Auto) 900 (0-900) /uL Eos # (Auto) 200 (0-450) /uL Baso # (Auto) 100 (0-100) /uL Sodium 137 (137-145) mmol/L Potassium 4.1 (3.4-5.1) mmol/L Chloride 102 (98-107) mmol/L Carbon Dioxide 30 (22-32) mmol/L BUN 12 (7-17) mg/dL Creatinine 0.93 (0.52-1.04) mg/dL Estimated GFR > 60 (>60) mL/min BUN/Creatinine Ratio 12.9 (6-22) Glucose 80 (70-100) mg/dL Calcium 9.2 (8.4-10.2) mg/dL Total Bilirubin 0.6 (0.2-1.3) mg/dL AST 41 H (14-36) IU/L ALT 29 (<35) IU/L Alkaline Phosphatase 61 (38-126) U/L Total Protein 9.1 H (6.3-8.2) g/dL Albumin 4.3 (3.5-5.0) g/dL Globulin 4.8 H (1.7-4.1) g/dL Albumin/Globulin Ratio 0.9 L (1.0-2.8) Lipase 156 (23-300) U/L Serum , Qual Negative (Negative) Urine Dip Bedside Urine Glucose Negative Bedside Urine Bilirubin - Negative Bedside Urine Ketone - Negative Urine Specific [place] 1.030 Bedside Urine Occult Blood - Negative Bedside Urine pH 6.0 Bedside Urine Protein - Negative Bedside Urine Urobilinogen - Negative Bedside Urine Nitrite - Negative Bedside Urine Leukocytes - Negative Esterase Point of care testing: Urine Dip Bedside Urine Glucose Negative Bedside Urine Bilirubin - Negative Bedside Urine Ketone - Negative Urine Specific [place] 1.030 Bedside Urine Occult Blood - Negative Bedside Urine pH 6.0 Bedside Urine Protein - Negative Bedside Urine Urobilinogen - Negative Bedside Urine Nitrite - Negative Bedside Urine Leukocytes - Negative Esterase Imaging Data CT scan - abdomen/pelvis: Radiologist's Impression: PROCEDURE: CT ABDOMEN PELVIS W CON INDICATIONS: constipation vs obstruction TECHNIQUE: After the administration of intravenous contrast, axial sections acquired from the lung bases to the pubic symphysis. Coronal and sagittal reformats were performed. For radiation dose reduction, the following was used: automated exposure control, adjustment of mA and/or kV according to patient size. COMPARISON: [facility], CT, CT KIDNEY URETER BLADDER (KUB), 02/13/2021, 1:12. FINDINGS: Image quality: Diagnostic. Lower Chest: No significant findings. ABDOMEN: Liver: No solid mass. Liver is hypoattenuating, compatible with diffuse fatty infiltration. Gallbladder: No radiopaque gallstones or wall thickening. Biliary ducts: No biliary dilation. Pancreas: No ductal dilation. Spleen: Size is within normal limits. Adrenal Glands: No adrenal nodules. Kidneys and Ureters: No hydronephrosis. No solid mass. No complex renal cystic lesion which requires follow up. Stomach and Bowel: Normal retrocecal appendix. Small and large bowel loops are nondistended. Mild colonic stool. Peritoneum: No abnormal intraperitoneal fluid. No free air. Ventral Wall: No significant ventral hernia. Abdominal Nodes: No retroperitoneal or mesenteric adenopathy by size criteria. Vessels: Aorta and inferior vena cava are normal in size. PELVIS: Pelvic Organs: Intrauterine device is seen in expected position. Ovaries are symmetric in size. Bladder: No bladder wall thickening, accounting for underdistention. Pelvic Nodes: No enlarged lymph nodes. Miscellaneous: No inguinal hernias are seen. Bones: No aggressive osseous abnormality. IMPRESSION: 1. No acute abnormality identified in the abdomen or pelvis. Mild colonic stool. Normal appendix. No renal or ureteral calculus. 2. Diffuse hepatic steatosis. MDM Narrative Medical decision making narrative: Labs unremarkable. Exam is unremarkable. CT scan shows no acute pathology. No indication for surgical consultation. No indication for admission to the hospital. We did discuss the use of laxatives. Will have her keep her scheduled appointment with her primary doctor for tomorrow. She was given return precautions and follow-up instructions. She expressed understanding and agreement with the plan. Discharge Plan Departure Patient Disposition: Home Clinical Impression: Constipation Instructions: DI for Constipation Activity Restrictions/Additional Instructions: Keep your scheduled appointment with your primary doctor for tomorrow. Use the laxative like we discussed. Return to the emergency department for new or worsening symptoms. Prescriptions: No Action ketorolac 10 mg tablet 10 mg PO TID PRN (Reason: pain) Qty: 15 0RF cyclobenzaprine 10 mg tablet 10 mg PO TID PRN (Reason: muscle spasm) Qty: 14 0RF Desitin 40 % paste 1 applic topical TID Qty: 57 0RF cetirizine 10 mg tablet 20 mg PO BEDTIME Qty: 40 0RF benzonatate 200 mg capsule 200 mg PO TID PRN (Reason: cough) Qty: 30 0RF albuterol sulfate 90 mcg/actuation HFA aerosol inhaler 2 puff inhalation Q6H PRN (Reason: shortness of breath or wheezing) Qty: 6.7 0RF Referrals: Nena Coronado PA-C [Primary Care Provider] - Stand Alone Forms: Patient Portal/API/Survey
== END 2024-04-04 19:48 | disposition home or self-care (01) ==
PROVIDERS: Emergency Medicine; Emergency Provider Emergency Medicine; PCP Physician Assistant
DX: K59.00 Constipation, unspecified (principal)
CPT/HCPCS: 36415; 74177; 80053; 81003; 83690; 84703; 85025; 99284; Q9967

== ENCOUNTER 2024-05-24 22:48 | Emergency (ER) | payer OTHER, SELFPAY ==
[2024-05-24 22:51] VITALS: BP 139/60; PULSE 92; RESP 24; TEMP 36.7; O2SAT 96; BMI 52.4
--- NOTE | 2024-05-24 22:55 | EKG_ITS ---
[place] [id number] [place] [id number] Test Date: 2024-05-24 Pat Name: Shanae Martinez Department: [facility] Room: Gender: Female Rn Clinical Trials: : 1990 Requested By: Order Number: [id number] Reading MD: Dhruv Murcia MD Measurements Intervals [place] Rate: 96 P: 29 MA: 136 QRS: 65 QRSD: 86 T: 39 QT: 370 QTc: 467 Interpretive Statements Normal sinus rhythm Possible Anterior infarct , age undetermined Electronically Signed On 05-25-2024 12:42:56 PST by Dhruv Murcia MD
[2024-05-25] VITALS (13 sets, daily range): BP systolic 89–148; BP diastolic 48–95; PULSE 70–93; RESP 9–24; O2SAT 90–97
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
--- NOTE | 2024-05-25 04:18 | ED_ITS ---
HPI - Chest Pain <Mile Carmen, DO - Last Filed: 05/26/24 04:54> General Chief Complaint: Chest Pain Stated Complaint: chest pain Time Seen by Provider: 05/25/24 04:18 Source: patient and EMS Mode of arrival: EMS Limitations: no limitations Limitations: no limitations History of Present Illness HPI narrative: 33-year-old female history of reactive airway/asthma, hypertension, migraines, anxiety and depression who presents with a complaint of chest pain. Patient states she was assisting caregiving for her mother was pulling her up when had a pain in her chest after this occurred and has been persistent but waxing and waning since. She states it is currently improved but is still present. Patient states on the left side of the chest does not radiate. She states nothing seems to make it better or worse. Feels little bit short of breath. Denies any fevers or chills no cold, cough or congestion symptoms. No nausea or vomiting. No issues with bowel movements did note some blood in her urine which she states she has not had a menstrual cycle and a long time but denies any other urinary symptoms. No new swelling of extremities. Patient is on medication for hypertension, depression, albuterol PRN, no reported estrogen. She reports she had a stroke at 1 point she lost vision in her eye for 17 days states she was told she could never take aspirin and describes it as hemorrhagic and was kept at [facility] for 5 days. She also notes that she is seen Neurology. Have discussed workup for MS. Patient states surgeries. Reports an allergy to prednisone which has hallucination, gabapentin and penicillin. No tobacco, no alcohol no recreational drugs. No reported cardiac history in the family. Patient is Dr. Le on 05/23/24. Related Data Previous Rx's Medication Instructions Recorded cyclobenzaprine 10 mg tablet 10 mg PO TID PRN muscle spasm #14 12/09/19 tabs ketorolac 10 mg tablet 10 mg PO TID PRN pain #15 tabs 12/09/19 zinc oxide-cod liver oil 40 % 1 applic topical TID #57 grams 02/13/21 topical paste (Desitin) cetirizine 10 mg tablet 20 mg (2 x 10 mg) PO BEDTIME #40 06/09/22 tabs albuterol sulfate 90 mcg/actuation 2 puff inhalation Q6H PRN 06/12/23 aerosol inhaler shortness of breath or wheezing #6.7 grams benzonatate 200 mg capsule 200 mg PO TID PRN cough #30 caps 06/12/23 Allergies Allergy/AdvReac Type Severity Reaction Status Date / Time penicillin G Allergy Unknown Verified 06/09/22 15:42 gabapentin Allergy Rash Verified 06/09/22 15:42 prednisone AdvReac Unknown Verified 06/09/22 15:42 steroids Allergy Hallucinati Uncoded 04/04/24 16:36 ng Review of Systems <Mile Carmen DO - Last Filed: 05/26/24 04:54> Review of Systems ROS Unobtainable: All systems reviewed & are unremarkable except as noted in HPI and below Patient History <Mile Carmen DO - Last Filed: 05/26/24 04:54> Social History Smoking Status: Never smoker Smoking Status: Never smoker Exam <Mile Carmen DO - Last Filed: 05/26/24 04:54> Narrative Exam Narrative: GENERAL: Alert and oriented x three, obese female in mild distress HEENT: Head normocephalic, atraumatic, EOMI, pupils reactive, face symmetric, moist mucous membranes NECK: Supple, full range of motion CARDIOVASCULAR: Regular rate and rhythm without murmurs, rubs or gallops. RESPIRATORY: Breath sounds equal bilaterally, no wheezes rales or rhonchi. No tachypnea or accessory muscle use ABDOMEN: Soft, nontender. Normoactive bowel sounds all 4 quadrants. No guarding or rebound, rigidity, no mass : No CVA tenderness EXTREMITIES: Normal range of motion, no clubbing or edema. Neurovascularly intact NEUROLOGICAL: Cranial nerves II through XII grossly intact. Moving all extremities SKIN: Warm, dry, no petechiae, no rashes or lesions. Initial Vital Signs Initial Vital Signs: Vital Signs Temperature 98.0 F 05/24/24 22:51 Pulse Rate 92 H 05/24/24 22:51 Respiratory Rate 24 05/24/24 22:51 Blood Pressure 139/60 05/24/24 22:51 Pulse Oximetry 96 05/24/24 22:51 Oxygen Delivery Method Room Air 05/24/24 22:51 <Ayde Muller DO - Last Filed: 05/25/24 08:01> Initial Vital Signs Initial Vital Signs: Vital Signs Temperature 98.0 F 05/24/24 22:51 Pulse Rate 92 H 05/24/24 22:51 Respiratory Rate 24 05/24/24 22:51 Blood Pressure 139/60 05/24/24 22:51 Pulse Oximetry 96 05/24/24 22:51 Oxygen Delivery Method Room Air 05/24/24 22:51 Course <Mile Carmen DO - Last Filed: 05/26/24 04:54> Orders Ordered: Discontinued Medications Acetaminophen (Acetaminophen 325 Mg Tablet) 975 mg PO NOW ONE Stop: 05/25/24 05:11 Last Admin: 05/25/24 05:20 Dose: 975 mg Documented By: MR Vital Signs Vital signs: Vital Signs - 8 hr 05/25/24 03:24 05/25/24 04:17 05/25/24 04:30 Pulse Rate 92 H 93 H 83 Respiratory Rate 16 18 17 Blood Pressure 127/79 147/95 H Pulse Oximetry 95 95 96 Oxygen Delivery Method Room Air 05/25/24 05:00 05/25/24 05:10 05/25/24 05:10 Pulse Rate 83 86 Respiratory Rate 16 Blood Pressure 120/61 Pulse Oximetry 97 Oxygen Delivery Method 05/25/24 05:30 05/25/24 05:30 05/25/24 05:34 Pulse Rate 74 Respiratory Rate 9 L Blood Pressure 89/48 L 123/58 L Pulse Oximetry 93 Oxygen Delivery Method 05/25/24 05:34 05/25/24 06:00 05/25/24 06:00 Pulse Rate 84 87 Respiratory Rate 18 Blood Pressure 98/72 Pulse Oximetry 95 90 L Oxygen Delivery Method 05/25/24 06:30 05/25/24 06:31 05/25/24 06:31 Pulse Rate 82 71 Respiratory Rate Blood Pressure 126/60 Pulse Oximetry 94 96 Oxygen Delivery Method 05/25/24 06:41 05/25/24 06:41 05/25/24 07:00 Pulse Rate 87 Respiratory Rate 10 L Blood Pressure 132/73 121/81 Pulse Oximetry 97 Oxygen Delivery Method 05/25/24 07:00 Pulse Rate 81 Respiratory Rate 14 Blood Pressure Pulse Oximetry 94 Oxygen Delivery Method <Ayde Muller DO - Last Filed: 05/25/24 08:01> Orders Ordered: Discontinued Medications Acetaminophen (Acetaminophen 325 Mg Tablet) 975 mg PO NOW ONE Stop: 05/25/24 05:11 Last Admin: 05/25/24 05:20 Dose: 975 mg Documented By: Vital Signs Vital signs: Vital Signs - 8 hr 05/25/24 03:24 05/25/24 04:17 05/25/24 04:30 Pulse Rate 92 H 93 H 83 Respiratory Rate 16 18 17 Blood Pressure 127/79 147/95 H Pulse Oximetry 95 95 96 Oxygen Delivery Method Room Air 05/25/24 05:00 05/25/24 05:10 05/25/24 05:10 Pulse Rate 83 86 Respiratory Rate 16 Blood Pressure 120/61 Pulse Oximetry 97 Oxygen Delivery Method 05/25/24 05:30 05/25/24 05:30 05/25/24 05:34 Pulse Rate 74 Respiratory Rate 9 L Blood Pressure 89/48 L 123/58 L Pulse Oximetry 93 Oxygen Delivery Method 05/25/24 05:34 05/25/24 06:00 05/25/24 06:00 Pulse Rate 84 87 Respiratory Rate 18 Blood Pressure 98/72 Pulse Oximetry 95 90 L Oxygen Delivery Method 05/25/24 06:30 05/25/24 06:31 05/25/24 06:31 Pulse Rate 82 71 Respiratory Rate Blood Pressure 126/60 Pulse Oximetry 94 96 Oxygen Delivery Method 05/25/24 06:41 05/25/24 06:41 05/25/24 07:00 Pulse Rate 87 Respiratory Rate 10 L Blood Pressure 132/73 121/81 Pulse Oximetry 97 Oxygen Delivery Method 05/25/24 07:00 Pulse Rate 81 Respiratory Rate 14 Blood Pressure Pulse Oximetry 94 Oxygen Delivery Method MDM - Chest Pain <Mile Carmen, - Last Filed: 05/26/24 04:54> Lab Data 05/25/24 05:00 05/25/24 05:00 Labs: Lab Results 05/25/24 Range/Units 05:00 WBC 8.6 (4.5-11.0) X10^3/uL RBC 4.61 (4.0-5.2) X10^6/uL Hgb 13.4 (12.0-16.0) g/dL Hct 41.0 (36-46) % MCV 88.9 (80-100) fL MCH 29.1 (26-34) PG MCHC 32.8 (30-36) % RDW 14.5 (11.6-14.8) % Plt Count 288 (150-400) X10^3/uL Neut % (Auto) 52.6 (50-75) % Lymph % (Auto) 36.2 (25-40) % [place] % (Auto) 7.9 (3-14) % Eos % (Auto) 2.5 (2-4) % Baso % (Auto) 0.8 (0-2) % Neut # (Auto) 4500 (2749-5471) /uL Lymph # (Auto) 3100 (1752-9622) /uL [place] # (Auto) 700 (0-900) /uL Eos # (Auto) 200 (0-450) /uL Baso # (Auto) 100 (0-100) /uL Sodium 138 (137-145) mmol/L Potassium 4.2 (3.4-5.1) mmol/L Chloride 106 (98-107) mmol/L Carbon Dioxide 25 (22-32) mmol/L BUN 9 (7-17) mg/dL Creatinine 0.89 (0.52-1.04) mg/dL Estimated GFR > 60 (>60) mL/min BUN/Creatinine Ratio 10.1 (6-22) Glucose 120 H (70-100) mg/dL Calcium 9.2 (8.4-10.2) mg/dL Total Bilirubin 0.5 (0.2-1.3) mg/dL AST 41 H (14-36) IU/L ALT 31 (<35) IU/L Alkaline Phosphatase 59 (38-126) U/L Total Creatine Kinase 97 (30-135) U/L Troponin I < 0.012 (0.01-0.034) ng/mL NT-Pro-B Natriuret Pep < 20 (<125) pg/mL Total Protein 8.7 H (6.3-8.2) g/dL Albumin 4.4 (3.5-5.0) g/dL Globulin 4.3 H (1.7-4.1) g/dL Albumin/Globulin Ratio 1.0 (1.0-2.8) Lipase 167 (23-300) U/L Point of Care Testing Test Results Negative Urine Dip Bedside Urine Glucose Negative Bedside Urine Bilirubin - Negative Bedside Urine Ketone - Negative Urine Specific [place] 1.030 Bedside Urine Occult Blood - Negative Bedside Urine pH 6.0 Bedside Urine Protein - Negative Bedside Urine Urobilinogen - Negative Bedside Urine Nitrite - Negative Bedside Urine Leukocytes - Negative Esterase ECG Data Attestation: I personally reviewed and interpreted this ECG as follows: Prior ECG tracings: not available for review Interpretation: Sinus rhythm rate of 96 SC 136 QRS 86 QTC of 467, no acute ST changes. No priors for comparison. Repeat EKG shows sinus rhythm, rate of 77 SC 138 QRS of 90 QTC of 457, EKG appears similar to prior from earlier. No dynamic changes. MDM Narrative Medical decision making narrative: 33-year-old female who states she was started having chest pain on her left side after moving her mom but then states she rested and then it began. Has been persistent since 01/07 last night although waxing and waning in intensity denies any fevers chills or other symptoms. Patient was on medication for hypertension had recent referral to Cardiology because of labile blood pressure when at her neurologist's office. EKG shows sinus rhythm rate of 96 SC 136 QRS 86 QTC of 467. No priors. Chest x-ray study limited by patient body habitus, lungs are well inflated, minor elevation right hemidiaphragm. Cardiac silhouette within normal limits. No focal areas of consolidation. Labs show white count 8.6 hemoglobin of 13 platelets of 288. Electrolytes are appropriate chemistries did not show any major electrolyte abnormalities glucose is 120 creatinine 0.89 AST is 41 similar March of 2024 bilirubin, ALT and lipase are normal. BNP is less than 20, troponin less than 0.012 Point of care urine is negative. point of care preg is negative. Patient's symptoms started at 9:30 last night has been 8 hours from symptoms onset. Patient felt appropriate for discharge. Patient requesting acetaminophen. Paged out Cardiology, Dr. Cunha had been in contact with patients family last night. She saw their office 05/23/24 to establish care. 07 Dr. Muller, I have seen and evaluated patient myself signed out to me by Dr. Carmen. Patient is complaining of centralized left-sided chest pain. Definitely reproducible to palpation. She has a BMI 52. She has established care with Cardiology. Workup in the emergency department is negative she has a negative troponin. It does not hurt to breathe. She does report that she had some shortness of breath in the ED while walking to the restroom but does not usually have any shortness of breath. She felt like her shortness of breath was just due to some pain and being asleep. [id number] Dr. Cunha, cardiology updated patient's symptoms test results agrees with outpatient follow-up and workup. At this time I think patient's pain is more musculoskeletal costochondritis in nature rather than cardiac. <Ayde Muller, DO - Last Filed: 05/25/24 08:01> Lab Data Labs: Lab Results 05/25/24 Range/Units 05:00 WBC 8.6 (4.5-11.0) X10^3/uL RBC 4.61 (4.0-5.2) X10^6/uL Hgb 13.4 (12.0-16.0) g/dL Hct 41.0 (36-46) % MCV 88.9 (80-100) fL MCH 29.1 (26-34) PG MCHC 32.8 (30-36) % RDW 14.5 (11.6-14.8) % Plt Count 288 (150-400) X10^3/uL Neut % (Auto) 52.6 (50-75) % Lymph % (Auto) 36.2 (25-40) % [place] % (Auto) 7.9 (3-14) % Eos % (Auto) 2.5 (2-4) % Baso % (Auto) 0.8 (0-2) % Neut # (Auto) 4500 (5109-1952) /uL Lymph # (Auto) 3100 (7811-6792) /uL [place] # (Auto) 700 (0-900) /uL Eos # (Auto) 200 (0-450) /uL Baso # (Auto) 100 (0-100) /uL Sodium 138 (137-145) mmol/L Potassium 4.2 (3.4-5.1) mmol/L Chloride 106 (98-107) mmol/L Carbon Dioxide 25 (22-32) mmol/L BUN 9 (7-17) mg/dL Creatinine 0.89 (0.52-1.04) mg/dL Estimated GFR > 60 (>60) mL/min BUN/Creatinine Ratio 10.1 (6-22) Glucose 120 H (70-100) mg/dL Calcium 9.2 (8.4-10.2) mg/dL Total Bilirubin 0.5 (0.2-1.3) mg/dL AST 41 H (14-36) IU/L ALT 31 (<35) IU/L Alkaline Phosphatase 59 (38-126) U/L Total Creatine Kinase 97 (30-135) U/L Troponin I < 0.012 (0.01-0.034) ng/mL NT-Pro-B Natriuret Pep < 20 (<125) pg/mL Total Protein 8.7 H (6.3-8.2) g/dL Albumin 4.4 (3.5-5.0) g/dL Globulin 4.3 H (1.7-4.1) g/dL Albumin/Globulin Ratio 1.0 (1.0-2.8) Lipase 167 (23-300) U/L Point of Care Testing Test Results Negative Urine Dip Bedside Urine Glucose Negative Bedside Urine Bilirubin - Negative Bedside Urine Ketone - Negative Urine Specific [place] 1.030 Bedside Urine Occult Blood - Negative Bedside Urine pH 6.0 Bedside Urine Protein - Negative Bedside Urine Urobilinogen - Negative Bedside Urine Nitrite - Negative Bedside Urine Leukocytes - Negative Esterase MDM Narrative Medical decision making narrative: 33-year-old female who states she was started having chest pain on her left side after moving her mom but then states she rested and then it began. Has been persistent since 01/07 last night although waxing and waning in intensity denies any fevers chills or other symptoms. Patient was on medication for hypertension had recent referral to Cardiology because of labile blood pressure when at her neurologist's office. EKG shows sinus rhythm rate of 96 SC 136 QRS 86 QTC of 467. No priors. Chest x-ray study limited by patient body habitus, lungs are well inflated, minor elevation right hemidiaphragm. Cardiac silhouette within normal limits. No focal areas of consolidation. Labs show white count 8.6 hemoglobin of 13 platelets of 288. Electrolytes are appropriate chemistries did not show any major electrolyte abnormalities glucose is 120 creatinine 0.89 AST is 41 similar March of 2024 bilirubin, ALT and lipase are normal. BNP is less than 20, troponin less than 0.012 Point of care urine is negative. point of care preg is negative. Patient's symptoms started at 9:30 last night has been 8 hours from symptoms onset. Patient felt appropriate for discharge. Patient requesting acetaminophen. 07 Dr. Muller, I have seen and evaluated patient myself signed out to me by Dr. Carmen. Patient is complaining of centralized left-sided chest pain. Definitely reproducible to palpation. She has a BMI 52. She has established care with Cardiology. Workup in the emergency department is negative she has a negative troponin. It does not hurt to breathe. She does report that she had some shortness of breath in the ED while walking to the restroom but does not usually have any shortness of breath. She felt like her shortness of breath was just due to some pain and being asleep. [id number] Dr. Cunha, cardiology updated patient's symptoms test results agrees with outpatient follow-up and workup. At this time I think patient's pain is more musculoskeletal costochondritis in nature rather than cardiac. Discharge Plan Departure Patient Disposition: Home Clinical Impression: Chest pain, Acute costochondritis Instructions: Costochondritis, DI for Atypical Chest Pain Activity Restrictions/Additional Instructions: *You have been diagnosed with costochondritis, atypical chest pain *What to do: At this time please follow-up with Cardiology will still need further workup including stress test and echocardiogram. At this time I think that your pain is related to a muscle strain. This can take a couple of weeks to fully heal. *Continue to take medications as directed Tylenol 1000 mg every 6 hours for [id number] pain *Follow up with your primary care provider in 2-3 days or call [phone] Cunha or your harness installer *Return to ER if you should have increasing shortness of breath chest pain or any new, worsening or concerning symptoms Prescriptions: No Action ketorolac 10 mg tablet 10 mg PO TID PRN (Reason: pain) Qty: 15 0RF cyclobenzaprine 10 mg tablet 10 mg PO TID PRN (Reason: muscle spasm) Qty: 14 0RF Desitin 40 % paste 1 applic topical TID Qty: 57 0RF cetirizine 10 mg tablet 20 mg PO BEDTIME Qty: 40 0RF benzonatate 200 mg capsule 200 mg PO TID PRN (Reason: cough) Qty: 30 0RF albuterol sulfate 90 mcg/actuation HFA aerosol inhaler 2 puff inhalation Q6H PRN (Reason: shortness of breath or wheezing) Qty: 6.7 0RF Referrals: Nena Coronado PA-C [Primary Care Provider] - Stand Alone Forms: Patient Portal/API/Survey
--- NOTE | 2024-05-25 04:42 | DI.RAD.S_ITS ---
PROCEDURE: XR CHEST 1V INDICATIONS: chest pain TECHNIQUE: One view of the chest was acquired. COMPARISON: [facility], CR, XR CHEST 2 VIEWS, 04/18/2024, 16:50. [facility], CR, XR CHEST 2 VIEWS, 03/21/2024, 13:53. [facility], CR, XR CHEST 2 VIEWS, 07/06/2023, 15:49. FINDINGS: This study is limited by body habitus. Surgical changes and devices: None. Lungs and pleura: An incomplete inspiratory result is noted, causing a crowded appearance to the lung markings. No focal infiltrates are seen. No pneumothorax or significant pleural effusions are seen. Mediastinum: Mediastinal contours appear normal. Heart size is normal. Bones and chest wall: No suspicious bony lesions. Overlying soft tissues appear unremarkable. IMPRESSION: Limited portable chest examination, without a significant cardiopulmonary abnormality identified. Note: No significant discrepancy from the preliminary report. Dictated by: Lucas Luciano M.D. on 05/25/2024 at 10:15 Approved by: Lucas Luciano M.D. on 05/25/2024 at 10:16
--- NOTE | 2024-05-25 05:02 | EKG_ITS ---
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
[2024-05-25 05:09] LABS: Add Manual Diff / Slide Review NO; Basophils Absolute Auto 100 /uL (0-100); Basophils Percent Auto 0.8 % (0-2); Eosinophils Absolute Auto 200 /uL (0-450); Eosinophils Percent Auto 2.5 % (2-4); Hemoglobin 13.4 g/dL (12.0-16.0); Lymphocytes Absolute Auto 3100 /uL (1100-4500); Lymphocytes Percent Auto 36.2 % (25-40); Mean Corpuscular HGB Conc 32.8 % (30-36); Mean Corpuscular Hemoglobin 29.1 PG (26-34); Mean Corpuscular Volume 88.9 fL (80-100); Monocytes Absolute Auto 700 /uL (0-900); Monocytes Percent Auto 7.9 % (3-14); Neutrophils Absolute Auto 4500 /uL (1500-7000); Neutrophils Percent Auto 52.6 % (50-75); Platelet Count 288 X10^3/uL (150-400); Red Blood Cell Count 4.61 X10^6/uL (4.0-5.2); Red Cell Distribution Width 14.5 % (11.6-14.8); White Blood Cell Count 8.6 X10^3/uL (4.5-11.0)
[2024-05-25] MEDS: ACETAMINOPHEN 325 MG TABLET 975 MG PO (05:20)
[2024-05-25 05:22] LABS: Alanine Aminotransferase 31 IU/L (<35); Albumin 4.4 g/dL (3.5-5.0); Alkaline Phosphatase 59 U/L (38-126); Aspartate Aminotransferase 41 IU/L (14-36); BUN Creatinine Ratio 10.1 (6-22); Bilirubin Total 0.5 mg/dL (0.2-1.3); Blood Urea Nitrogen 9 mg/dL (7-17); Calcium 9.2 mg/dL (8.4-10.2); Carbon Dioxide 25 mmol/L (22-32); Chloride 106 mmol/L (98-107); Creatine Kinase 97 U/L (30-135); Estimated Glomerular Filt Rate > 60 mL/min (>60); Globulin 4.3 g/dL (1.7-4.1); Glucose 120 mg/dL (70-100); HEMOLYSIS < 15 (0-50); Lipase 167 U/L (23-300); Potassium 4.2 mmol/L (3.4-5.1); Sodium 138 mmol/L (137-145); Total Protein 8.7 g/dL (6.3-8.2)
[2024-05-25 05:31] LABS: NT-proBNP (BNP-Adult 18+) < 20 pg/mL (<125)
[2024-05-25 05:34] LABS: Troponin I < 0.012 ng/mL (0.01-0.034)
== END 2024-05-25 08:01 | disposition home or self-care (01) ==
PROVIDERS: Emergency Medicine; Emergency Provider Emergency Medicine; PCP Physician Assistant
DX: R07.9 Chest pain, unspecified (principal); M94.0 Chondrocostal junction syndrome [Tietze]; I10 Essential (primary) hypertension; E66.9 Obesity, unspecified; Z68.43 Body mass index [BMI] 50.0-59.9, adult
CPT/HCPCS: 71045; 80053; 81003; 81025; 82550; 83690; 83880; 84484; 85025; 93005; 93010; 99283; 99284

== ENCOUNTER → 2024-07-03 12:35 | Outpatient (CLI) | payer OTHER, SELFPAY ==
--- NOTE | 2024-07-03 12:38 | DI.ECHO.S_ITS ---
[facility] : : [address] : : [place] : : [id number] : : Phone: [phone] Echocardiogram Report + + :Name: GRABIEL MUELLER Study Date: 07/03/2024 Height: 66 in : :[facility] ReadingLocation: Weight: 250 lb : : Gender: Female BSA: 2.2 m2 : :: 1990 Age: 33 yrs BP: 158/102 mmHg: :Reason For Study: CHEST PAIN : :Ordering Physician: MAVIS, : :MYRIAM Performed By: Jaleesa Perez : :Referring: MYRIAM LE : + + Interpretation Summary 1) Normal left ventricular thickness, size, wall motion, and systolic function (EF 60-65%). 2) Normal right ventricular size and function. 3) No significant valvular abnormalities. 4) No prior Echo available for comparison. Procedure: A two-dimensional transthoracic echocardiogram with color flow and Doppler was performed. The study quality was technically difficult. There is no prior echocardiogram noted for this patient. The patient was in sinus rhythm with heart rates between 66-82 bpm during the exam. Left Ventricle: The left ventricle is normal in size and wall thickness. The ejection fraction is estimated to be 60-65%. Left ventricular systolic function appears normal without focal wall motion abnormalities. Diastolic parameters suggest probable normal left ventricular diastolic function and normal filling pressures. Right Ventricle: The right ventricle is normal in size and function. Atria: The left atrial size is normal. Right atrial size is normal. There is no Doppler evidence for an interatrial shunt. Mitral Valve: The mitral valve leaflets appear to open well. There is trace mitral regurgitation. Aortic Valve: The aortic valve opens well. There is no aortic valve stenosis. No aortic regurgitation is present. Tricuspid Valve: The tricuspid valve leaflets are thin and pliable. No tricuspid regurgitation. Pulmonary artery pressures cannot be estimated because of the lack of a measurable TR jet velocity. Pulmonic Valve: The pulmonic valve is not well visualized. There is no pulmonic valvular regurgitation. Great Vessels: The aortic root is normal size. The dimensions of the ascending aorta are normal. The IVC is dilated (diameter is greater than 2.1 cm) yet it collapses greater than 50% with a sniff. This suggests a right atrial pressure of 8 mm Hg. Pericardium/ Pleura There is no pericardial effusion. There is no pleural effusion. MMode/2D Measurements & Calculations LVIDd: 4.5 cm LVOT diam: 2.0 cm LVIDs: 3.0 cm asc Aorta Diam: 3.1 cm FS: 33.9 % Ao Arch Diam (Prox Trans): 2.7 cm IVSd: 0.91 cm LVPWd: 0.79 cm LV davila. diameter/BSA (cm/m^2): 2.1 LV sys. diameter/BSA (cm/m^2): 1.4 LA A2 area: 16.4 cm2 RA long axis: 4.5 cm LA A4 area: 13.4 cm2 RA area: 11.2 cm2 LA length (vol): 5.1 cm RA vol: 23.8 ml LA vol: 36.5 ml RA : 10.8 ml/m2 LA vol index: 16.6 ml/m2 IVC diam: 2.1 cm RVD1 (basal): 4.0 cm TAPSE: 1.8 cm Doppler Measurements & Calculations Ao V2 max: 154.3 cm/sec LVOT Max Uriel: 126.0 cm/sec Ao V2 mean: 114.6 cm/sec LV V1 max P.4 mmHg Ao max P.5 mmHg LV V1 VTI: 27.6 cm Ao mean P.7 mmHg KRISTOPHER(I,D): 2.7 cm2 Ao V2 VTI: 32.6 cm KRISTOPHER(V,D): 2.7 cm2 sev ratio: 0.85 KRISTOPHER indexed to BSA (cm^2/m^2): 1.3 MV E max uriel: 95.0 cm/sec PA V2 max: 104.1 cm/sec MV A max uriel: 50.4 cm/sec PA V2 mean: 75.2 cm/sec MV E/A: 1.9 PA mean P.5 mmHg Med Peak E' Uriel: 9.4 cm/sec PA pr(Accel): 12.2 mmHg E/E' med: 10.1 Lat Peak E' Uriel: 12.4 cm/sec E/E' lat: 7.7 E/e' average: 8.9 MV dec time: 0.18 sec SV(LVOT): 89.6 ml Reading Physician:04:08 PM
--- NOTE | 2024-07-03 12:39 | DI.NM.S_ITS ---
PROCEDURE: NM EXERCISE TREADMILL NON NUC COMPARISON: None. INDICATIONS: CHEST PAIN FINDINGS: The patient exercised for 5 minutes and 10 seconds, reaching 76% of maximum predicted heart rate. Double product 16093, suggesting adequate stress test. No chest pain, no ST changes, and no ectopy during exercise or recovery. IMPRESSION: Low risk, normal treadmill ECG only stress test from inducible ischemia standpoint. Poor exercise tolerance (TAMMIE +46%). While only 76% of maximum predicted heart rate was reached, double product was 13298, suggesting adequate stress test. Dictated by: Laura Le MD on 07/04/2024 at 16:44 Approved by: Laura Le MD on 07/04/2024 at 16:47
== END ==
PROVIDERS: PCP Physician Assistant; Referring Provider Internal Medicine Cardiovascular Disease; Visit Provider Internal Medicine Cardiovascular Disease
DX: R07.9 Chest pain, unspecified (principal); I10 Essential (primary) hypertension
CPT/HCPCS: 93017; 93306

== ENCOUNTER 2024-08-08 14:49 | Emergency (ER) | payer OTHER, SELFPAY ==
[2024-08-08] VITALS (18 sets, daily range): BP systolic 111–168; BP diastolic 56–94; PULSE 75–103; RESP 12–25; TEMP 36.6; O2SAT 92–98; BMI 53.2
--- NOTE | 2024-08-08 14:58 | DI.RAD.S_ITS ---
PROCEDURE: XR CHEST 1V INDICATIONS: chest pain TECHNIQUE: One view of the chest was acquired. COMPARISON: [facility], CR, XR CHEST 1V, 05/25/2024, 4:45. [facility], CR, XR CHEST 1 VIEW, 07/16/2024, 20:41. FINDINGS: Surgical changes and devices: None. Lungs and pleura: Lungs are clear. No pleural effusions or pneumothorax. Mediastinum: Mediastinal contours appear normal. Heart size is normal. Bones and chest wall: No suspicious bony lesions. Overlying soft tissues appear unremarkable. IMPRESSION: No acute pulmonary process. Dictated by: Lilliana Martin M.D. on 08/08/2024 at 16:33 Approved by: Lilliana Martin M.D. on 08/08/2024 at 16:33
--- NOTE | 2024-08-08 14:59 | EKG_ITS ---
[place] [id number] [place] [id number] Test Date: 2024-08-08 Pat Name: Shanae Martinez Department: Room: Gender: Female Shift Commander: PJ : 1990 Requested By: Order Number: [id number] Reading MD: Miguel Palacios Measurements Intervals [place] Rate: 91 P: 35 ID: [id number] QRS: 24 QRSD: 90 T: 50 QT: 374 QTc: 460 Interpretive Statements Normal sinus rhythm Possible Inferior infarct , age undetermined Electronically Signed On 08-09-2024 16:03:23 PDT by Miguel Palacios
[2024-08-08 15:38] LABS: Add Manual Diff / Slide Review NO; Basophils Absolute Auto 100 /uL (0-100); Basophils Percent Auto 0.9 % (0-2); Eosinophils Absolute Auto 200 /uL (0-450); Eosinophils Percent Auto 1.8 % (2-4); Hematocrit 41.9 % (36-46); Hemoglobin 13.9 g/dL (12.0-16.0); Lymphocytes Absolute Auto 3300 /uL (1100-4500); Lymphocytes Percent Auto 34.1 % (25-40); Mean Corpuscular HGB Conc 33.2 % (30-36); Mean Corpuscular Hemoglobin 29.3 PG (26-34); Mean Corpuscular Volume 88.3 fL (80-100); Monocytes Absolute Auto 600 /uL (0-900); Monocytes Percent Auto 5.9 % (3-14); Neutrophils Absolute Auto 5500 /uL (1500-7000); Neutrophils Percent Auto 57.3 % (50-75); Platelet Count 339 X10^3/uL (150-400); Red Blood Cell Count 4.75 X10^6/uL (4.0-5.2); Red Cell Distribution Width 13.4 % (11.6-14.8); White Blood Cell Count 9.6 X10^3/uL (4.5-11.0)
[2024-08-08] MEDS: ACETAMINOPHEN 325 MG TABLET 650 MG PO (15:38)
[2024-08-08 15:45] LABS: Prothrombin Time 11.8 SECONDS (9.4-12.5)
[2024-08-08 15:48] LABS: PTT Partial Thromboplastin Tim 35 SECONDS (25.1-36.5)
[2024-08-08 15:50] LABS: Alanine Aminotransferase 34 IU/L (<35); Albumin 4.6 g/dL (3.5-5.0); Alkaline Phosphatase 59 U/L (38-126); Aspartate Aminotransferase 43 IU/L (14-36); BUN Creatinine Ratio 9.9 (6-22); Bilirubin Total 0.6 mg/dL (0.2-1.3); Blood Urea Nitrogen 9 mg/dL (7-17); Calcium 9.2 mg/dL (8.4-10.2); Carbon Dioxide 24 mmol/L (22-32); Chloride 105 mmol/L (98-107); Creatine Kinase 63 U/L (30-135); Estimated Glomerular Filt Rate > 60 mL/min (>60); Globulin 4.7 g/dL (1.7-4.1); Glucose 134 mg/dL (70-99); HEMOLYSIS < 15 (0-50); Lactate (Lactic Acid) 1.7 mmol/L (0.7-2.1); Lipase 122 U/L (23-300); Magnesium 1.9 mg/dL (1.6-2.3); Potassium 3.9 mmol/L (3.4-5.1); Sodium 140 mmol/L (137-145); Total Protein 9.3 g/dL (6.3-8.2)
[2024-08-08 16:02] LABS: NT-proBNP (BNP-Adult 18+) < 20 pg/mL (<125); Troponin I < 0.012 ng/mL (0.01-0.034)
[2024-08-08 16:06] LABS: Procalcitonin 0.061 ng/mL (<0.5)
[2024-08-08 16:20] LABS: Influenza A - CEPHEID Flu A NEGATIVE (NEGATIVE); Influenza B - CEPHEID Flu B NEGATIVE (NEGATIVE); Respiratory Syncytial Virus Negative (Negative)
[2024-08-08 16:23] LABS: COVID-19 CEPHEID 4-PLEX PCR Negative (Negative)
--- NOTE | 2024-08-08 16:59 | DI.CT.S_ITS ---
PROCEDURE: CT ANGIO CHEST PE PROTOCOL INDICATIONS: SOB with chest pain sudden onset TECHNIQUE: After the administration of intravenous contrast, 2 mm thick sections acquired from the pulmonary apices to the posterior costophrenic angles. 3-dimensional maximum intensity projection (MIP) coronal and sagittal reformats were then acquired through the thorax. For radiation dose reduction, the following was used: automated exposure control, adjustment of mA and/or kV according to patient size. COMPARISON: None. FINDINGS: Image quality: Diagnostic. Pulmonary arteries: Pulmonary arteries are normal in size, and demonstrate no intraluminal filling defects to suggest central pulmonary embolism. Suboptimal bolus timing limits evaluation of the more distal pulmonary arteries. Lower Neck: No enlarged lymph nodes. Thyroid: No thyroid nodules which require sonographic follow up, per consensus guidelines. Axillae: No enlarged lymph nodes. Chest Wall: Unremarkable. Bones: Unremarkable. Lungs and Pleura: The very inferior lung bases are not included within the field of view. No pneumothorax or pleural effusions. No consolidation or suspicious nodules. Heart: Heart size is normal. No pericardial effusion. Thoracic Vessels: No aortic aneurysm. Mediastinum and Poppy: No enlarged lymph nodes. Esophagus: No wall thickening. No hiatal hernia. Upper Abdomen: Visualized upper abdomen solid organs and bowel loops appear normal. IMPRESSION: No central pulmonary embolus. Suboptimal bolus timing limits evaluation of the more distal pulmonary arteries. No acute cardiopulmonary process. Dictated by: Gideon Raymundo M.D. on 08/08/2024 at 17:25 Approved by: Gideon Raymundo M.D. on 08/08/2024 at 17:29
[2024-08-08] MEDS: ONDANSETRON 4 MG/2 ML INJ IV (17:14)
[2024-08-08] MEDS: MORPHINE 2 MG/ML INJ IV ×2 (17:14→19:23)
[2024-08-08 18:09] LABS: D Dimer < 215 ng/ml (<500)
[2024-08-08 18:18] LABS: Pregnancy Test Serum,Qual Negative (Negative)
[2024-08-08 18:50] LABS: Troponin I 0.019 ng/mL (0.01-0.034)
--- NOTE | 2024-08-08 18:57 | ED.CHESTPAIN ---
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 History presents with right-sided chest pain started over a week ago that radiates to her back but not associated with nausea vomiting diaphoresis but patient reports and endorses shortness of breath dyspnea on exertion walking to the bathroom. Patient denies leg pain leg swelling history of DVT or PE. Patient also reports nonproductive cough and sinus pressure and headache. Other than what is stated 14 point review of system is negative Related Data Previous Rx's Medication Instructions Recorded cyclobenzaprine 10 mg tablet 10 mg PO TID PRN muscle spasm #14 12/09/19 tabs ketorolac 10 mg tablet 10 mg PO TID PRN pain #15 tabs 12/09/19 zinc oxide-cod liver oil 40 % 1 applic topical TID #57 grams 02/13/21 topical paste (Desitin) cetirizine 10 mg tablet 20 mg (2 x 10 mg) PO BEDTIME #40 06/09/22 tabs albuterol sulfate 90 mcg/actuation 2 puff inhalation Q6H PRN 06/12/23 aerosol inhaler shortness of breath or wheezing #6.7 grams benzonatate 200 mg capsule 200 mg PO TID PRN cough #30 caps 06/12/23 albuterol sulfate 90 mcg/actuation 2 puff inhalation Q4-6H PRN 08/08/24 aerosol inhaler shortness of breath or wheezing #8.5 grams doxycycline hyclate 100 mg capsule 100 mg PO BID #14 caps 08/08/24 Allergies Allergy/AdvReac Type Severity Reaction Status Date / Time penicillin G Allergy Unknown Verified 08/08/24 14:58 gabapentin Allergy Rash Verified 08/08/24 14:58 prednisone AdvReac Unknown Verified 08/08/24 14:58 steroids Allergy Hallucinati Uncoded 08/08/24 14:58 ng Review of Systems Review of Systems ROS Unobtainable: All systems reviewed & are unremarkable except as noted in HPI and below Patient History Social History Smoking Status: Never smoker Smoking Status: Never smoker Exam Narrative Exam Narrative: GENERAL: [33] year old patient morbidly obese appears stated age. Well-developed patient, in mild distress. HEAD: Atraumatic. Normocephalic. EYES: Pupils equal round and reactive. Extraocular motions intact. No scleral icterus. No injection or drainage. ENT: Nose without bleeding, purulent drainage. Throat without erythema, tonsillar hypertrophy or exudate. Airway patent. B/L sinus TTP NECK: Trachea midline. Non tender CARDIOVASCULAR: Regular rate and rhythm without murmurs, gallops, or rubs. RESPIRATORY: Clear to auscultation. Breath sounds equal bilaterally. No wheezes, rales, or rhonchi. GASTROINTESTINAL: Abdomen soft, non-tender, nondistended. EXTREMITIES: No edema or joint tenderness. BACK: Nontender without deformity or crepitance. No flank tenderness. NEURO: AOx3. SKIN: No rash or erythema of visible areas Initial Vital Signs Initial Vital Signs: Vital Signs Temperature 98 F 08/08/24 14:54 Pulse Rate 103 H 08/08/24 14:54 Respiratory Rate 18 08/08/24 14:54 Blood Pressure 168/94 H 08/08/24 14:54 Pulse Oximetry 96 08/08/24 14:54 Oxygen Delivery Method Room Air 08/08/24 14:54 Scores HEART Score Heart Score history: Slightly Suspicious Heart Score EKG: Normal Heart Score Age: < 45 years old Heart Score risk factors: 1-2 risk factors Heart Score troponin: < or = to normal limit Heart Score Total: 1 Course Orders Ordered: ED Orders 08/08/24 14:58 XR chest 1V Stat EKG-12 Lead Stat 08/08/24 15:00 Covid-19 + FLU A/B + RSV - PCR Stat 08/08/24 15:30 Complete Blood Count AUTO DIFF Stat Comprehensive Metabolic Panel Stat Lactate (Lactic Acid) Stat Lipase Stat Magnesium Stat NT-proBNP (BNP-Adult 18+) Stat PTT Partial Thromboplastin Abhishek Stat Procalcitonin Stat Prothrombin Time INR Stat Troponin & CK Cardiac Panel Stat 08/08/24 15:32 D Dimer Stat Test Serum,Qual Stat 08/08/24 16:59 CT angio chest PE protocol Stat 08/08/24 17:02 EKG-12 Lead Stat 08/08/24 18:22 Troponin I Stat 08/08/24 19:17 US abdomen limited Stat 08/08/24 20:04 Troponin I Stat Discontinued Medications Acetaminophen (Acetaminophen 650 Mg Supp) 650 mg ID NOW ONE Stop: 08/08/24 15:31 Last Admin: 08/08/24 15:34 Dose: Not Given Documented By: BETO Acetaminophen (Acetaminophen 325 Mg Tablet) 650 mg PO NOW ONE Stop: 08/08/24 15:34 Last Admin: 08/08/24 15:38 Dose: 650 mg Documented By: BETO Aspirin (Aspirin 81 Mg Chew Tab) 324 mg PO NOW ONE Stop: 08/08/24 14:59 Morphine Sulfate (Morphine 2 Mg/Ml Inj) 2 mg IV NOW ONE Stop: 08/08/24 17:06 Last Admin: 08/08/24 17:14 Dose: 2 mg Documented By: ALONSO Morphine Sulfate (Morphine 2 Mg/Ml Inj) 2 mg IV NOW ONE Stop: 08/08/24 19:20 Last Admin: 08/08/24 19:23 Dose: 2 mg Documented By: ALONSO Ondansetron HCl (Ondansetron 4 Mg/2 Ml Inj) 4 mg IV NOW ONE Stop: 08/08/24 17:06 Last Admin: 08/08/24 17:14 Dose: 4 mg Documented By: ALONSO Vital Signs Vital signs: Vital Signs - 8 hr 08/08/24 14:54 08/08/24 16:22 08/08/24 16:22 Temperature 98 F Pulse Rate 103 H 97 H Respiratory Rate 18 16 Blood Pressure 168/94 H 132/84 Pulse Oximetry 96 97 Oxygen Delivery Method Room Air 08/08/24 16:30 08/08/24 16:30 08/08/24 17:00 Temperature Pulse Rate 94 H 92 H Respiratory Rate 19 25 H Blood Pressure 139/87 Pulse Oximetry 98 97 Oxygen Delivery Method 08/08/24 17:00 08/08/24 17:24 08/08/24 17:24 Temperature Pulse Rate 89 Respiratory Rate 18 Blood Pressure 138/74 131/58 L Pulse Oximetry 97 Oxygen Delivery Method 08/08/24 17:30 08/08/24 17:30 08/08/24 18:00 Temperature Pulse Rate 85 83 Respiratory Rate 12 15 Blood Pressure 116/56 L Pulse Oximetry 96 96 Oxygen Delivery Method 08/08/24 18:00 08/08/24 18:28 08/08/24 18:28 Temperature Pulse Rate 87 Respiratory Rate 18 Blood Pressure 111/59 L 121/67 Pulse Oximetry 96 Oxygen Delivery Method 08/08/24 18:30 08/08/24 18:30 08/08/24 19:00 Temperature Pulse Rate 82 Respiratory Rate 16 Blood Pressure 116/60 116/58 L Pulse Oximetry 95 Oxygen Delivery Method 08/08/24 19:00 08/08/24 19:30 08/08/24 19:30 Temperature Pulse Rate 90 85 Respiratory Rate 18 19 Blood Pressure 125/77 Pulse Oximetry 98 96 Oxygen Delivery Method 08/08/24 20:00 08/08/24 20:00 08/08/24 20:30 Temperature Pulse Rate 86 Respiratory Rate 15 Blood Pressure 131/70 130/64 Pulse Oximetry 96 Oxygen Delivery Method 08/08/24 20:30 08/08/24 21:00 08/08/24 21:00 Temperature Pulse Rate 80 75 Respiratory Rate 14 16 Blood Pressure 115/61 Pulse Oximetry 95 96 Oxygen Delivery Method 08/08/24 21:30 08/08/24 21:31 08/08/24 21:31 Temperature Pulse Rate 96 H 93 H Respiratory Rate 15 Blood Pressure 145/81 H Pulse Oximetry 95 96 Oxygen Delivery Method MDM - Chest Pain Lab Data 08/08/24 15:30 08/08/24 15:30 Labs: Lab Results 08/08/24 08/08/24 08/08/24 Range/Units 15:00 15:30 15:32 WBC 9.6 (4.5-11.0) X10^3/uL RBC 4.75 (4.0-5.2) X10^6/uL Hgb 13.9 (12.0-16.0) g/dL Hct 41.9 (36-46) % MCV 88.3 (80-100) fL MCH 29.3 (26-34) PG MCHC 33.2 (30-36) % RDW 13.4 (11.6-14.8) % Plt Count 339 (150-400) X10^3/uL Neut % (Auto) 57.3 (50-75) % Lymph % (Auto) 34.1 (25-40) % Robertson % (Auto) 5.9 (3-14) % Eos % (Auto) 1.8 L (2-4) % Baso % (Auto) 0.9 (0-2) % Neut # (Auto) 5500 (7408-8269) /uL Lymph # (Auto) 3300 (6525-9959) /uL Robertson # (Auto) 600 (0-900) /uL Eos # (Auto) 200 (0-450) /uL Baso # (Auto) 100 (0-100) /uL PT 11.8 (9.4-12.5) SECONDS INR 1.0 (0.9-1.3) APTT 35 (25.1-36.5) SECONDS D-Dimer < 215 (<500) ng/ml Sodium 140 (137-145) mmol/L Potassium 3.9 (3.4-5.1) mmol/L Chloride 105 (98-107) mmol/L Carbon Dioxide 24 (22-32) mmol/L BUN 9 (7-17) mg/dL Creatinine 0.91 (0.52-1.04) mg/dL Estimated GFR > 60 (>60) mL/min BUN/Creatinine Ratio 9.9 (6-22) Glucose 134 H (70-99) mg/dL Lactate 1.7 (0.7-2.1) mmol/L Calcium 9.2 (8.4-10.2) mg/dL Magnesium 1.9 (1.6-2.3) mg/dL Total Bilirubin 0.6 (0.2-1.3) mg/dL AST 43 H (14-36) IU/L ALT 34 (<35) IU/L Alkaline Phosphatase 59 (38-126) U/L Total Creatine Kinase 63 (30-135) U/L Troponin I < 0.012 (0.01-0.034) ng/mL NT-Pro-B Natriuret Pep < 20 (<125) pg/mL Total Protein 9.3 H (6.3-8.2) g/dL Albumin 4.6 (3.5-5.0) g/dL Globulin 4.7 H (1.7-4.1) g/dL Albumin/Globulin Ratio 1.0 (1.0-2.8) Lipase 122 (23-300) U/L Procalcitonin 0.061 (<0.5) ng/mL Serum , Qual Negative (Negative) SARS-CoV-2 (PCR) Negative (Negative) Influenza A (RT-PCR) Flu a negative (NEGATIVE) Influenza B (RT-PCR) Flu b negative (NEGATIVE) RSV (PCR) Negative (Negative) 08/08/24 08/08/24 Range/Units 18:22 20:04 WBC (4.5-11.0) X10^3/uL RBC (4.0-5.2) X10^6/uL Hgb (12.0-16.0) g/dL Hct (36-46) % MCV (80-100) fL MCH (26-34) PG MCHC (30-36) % RDW (11.6-14.8) % Plt Count (150-400) X10^3/uL Neut % (Auto) (50-75) % Lymph % (Auto) (25-40) % Robertson % (Auto) (3-14) % Eos % (Auto) (2-4) % Baso % (Auto) (0-2) % Neut # (Auto) (6775-6076) /uL Lymph # (Auto) (7359-9047) /uL Robertson # (Auto) (0-900) /uL Eos # (Auto) (0-450) /uL Baso # (Auto) (0-100) /uL PT (9.4-12.5) SECONDS INR (0.9-1.3) APTT (25.1-36.5) SECONDS D-Dimer (<500) ng/ml Sodium (137-145) mmol/L Potassium (3.4-5.1) mmol/L Chloride (98-107) mmol/L Carbon Dioxide (22-32) mmol/L BUN (7-17) mg/dL Creatinine (0.52-1.04) mg/dL Estimated GFR (>60) mL/min BUN/Creatinine Ratio (6-22) Glucose (70-99) mg/dL Lactate (0.7-2.1) mmol/L Calcium (8.4-10.2) mg/dL Magnesium (1.6-2.3) mg/dL Total Bilirubin (0.2-1.3) mg/dL AST (14-36) IU/L ALT (<35) IU/L Alkaline Phosphatase (38-126) U/L Total Creatine Kinase (30-135) U/L Troponin I 0.019 0.015 (0.01-0.034) ng/mL NT-Pro-B Natriuret Pep (<125) pg/mL Total Protein (6.3-8.2) g/dL Albumin (3.5-5.0) g/dL Globulin (1.7-4.1) g/dL Albumin/Globulin Ratio (1.0-2.8) Lipase (23-300) U/L Procalcitonin (<0.5) ng/mL Serum , Qual (Negative) SARS-CoV-2 (PCR) (Negative) Influenza A (RT-PCR) (NEGATIVE) Influenza B (RT-PCR) (NEGATIVE) RSV (PCR) (Negative) Imaging Data US - abdomen: Radiologist's Impression: [address] [address] Ultrasound Report Signed Patient: Shanae Martinez MR#: [id number] : 1990 Acct:[id number] Age/Sex: 33 / F Date of Service: 08/08/24 Loc: ED Accession Number: [id number] Procedure: US abdomen limited Ordering Provider: Dhruv Slater D.O. PROCEDURE: US ABDOMEN LIMITED INDICATIONS: RUQ PAIN TECHNIQUE: Real-time scanning was performed of the abdominal and retroperitoneal organs, with image documentation. COMPARISON: [facility], CT, CT ANGIO CHEST PE PROTOCOL, 08/08/2024, 17:16. [facility], CT, CT ABDOMEN PELVIS W CON, 04/04/2024, 18:34. FINDINGS: Liver: Measures 16.6 cm. Increased in echogenicity. Decreased sonographic penetration. Gallbladder: No gallstones identified. No wall thickening. No pericholecystic edema. Negative sonographic Majano's sign. Biliary ducts: Intrahepatic bile ducts are non-dilated. Extrahepatic bile duct caliber measures 7 mm. Normal is 6-7 mm or less in diameter, or 10 mm or less post-cholecystectomy. Pancreas: Not well seen due to bowel gas. Miscellaneous: No free abdominal fluid. IMPRESSION: 1. No acute cholecystitis demonstrated. No gallstones seen. 2. Increased hepatic echogenicity most consistent with hepatic steatosis. Other forms of hepatocellular disease could have similar appearance. Dictated by: Carlos Thompson M.D. on 08/08/2024 at 20:20 Approved by: Carlos Thompson M.D. on 08/08/2024 at 20:[address] [address] [address] Scan Report Signed Patient: Shanae Martinez MR#: [id number] : 1990 Acct:[id number] Age/Sex: 33 / F Date of Service: 08/08/24 Loc: ED Accession Number: [id number] Procedure: CT angio chest PE protocol Ordering Provider: Lorena Carrasco MD PROCEDURE: CT ANGIO CHEST PE PROTOCOL INDICATIONS: SOB with chest pain sudden onset TECHNIQUE: After the administration of intravenous contrast, 2 mm thick sections acquired from the pulmonary apices to the posterior costophrenic angles. 3-dimensional maximum intensity projection (MIP) coronal and sagittal reformats were then acquired through the thorax. For radiation dose reduction, the following was used: automated exposure control, adjustment of mA and/or kV according to patient size. COMPARISON: None. FINDINGS: Image quality: Diagnostic. Pulmonary arteries: Pulmonary arteries are normal in size, and demonstrate no intraluminal filling defects to suggest central pulmonary embolism. Suboptimal bolus timing limits evaluation of the more distal pulmonary arteries. Lower Neck: No enlarged lymph nodes. Thyroid: No thyroid nodules which require sonographic follow up, per consensus guidelines. Axillae: No enlarged lymph nodes. Chest Wall: Unremarkable. Bones: Unremarkable. Lungs and Pleura: The very inferior lung bases are not included within the field of view. No pneumothorax or pleural effusions. No consolidation or suspicious nodules. Heart: Heart size is normal. No pericardial effusion. Thoracic Vessels: No aortic aneurysm. Mediastinum and Poppy: No enlarged lymph nodes. Esophagus: No wall thickening. No hiatal hernia. Upper Abdomen: Visualized upper abdomen solid organs and bowel loops appear normal. IMPRESSION: No central pulmonary embolus. Suboptimal bolus timing limits evaluation of the more distal pulmonary arteries. No acute cardiopulmonary process. Dictated by: Gideon Raymundo M.D. on 08/08/2024 at 17:25 Approved by: Gideon Raymundo M.D. on 08/08/2024 at 17:29 ECG Data Interpretation: NSR HR [address]- t wave cange ID 146 QRS 90 QT 374 Unchanged from 05/25/24 MDM Narrative Medical decision making narrative: All lab work vital signs nurse triage note EKG chest x-ray and CT scan and ultrasound all reviewed including all previous ER visits and all imaging modalities. Patient given Tylenol morphine and Zofran. Differential diagnosis includes PE pleurisy costochondritis STEMI NSTEMI atypical chest pain GERD anxiety cholecystitis. Patient has upcoming senior center director appointment on the with Dr. Talavera her senior center director for which she will follow up with. She will be discharged home on albuterol and doxy rx. Discharge Plan Departure Patient Disposition: Home Clinical Impression: Acute bacterial sinusitis Chest pain Qualifiers: Chest pain type: chest pain on breathing Qualified Code(s): R07.1 - Chest pain on breathing Instructions: DI for Chest Pain Activity Restrictions/Additional Instructions: Return with new or worsening symptoms. Follow up with senior center director at your upcoming appointment. Take your medicines as directed Prescriptions: New doxycycline hyclate 100 mg capsule 100 mg PO BID Qty: 14 0RF albuterol sulfate 90 mcg/actuation HFA aerosol inhaler 2 puff inhalation Q4-6H PRN (Reason: shortness of breath or wheezing) Qty: 8.5 0RF No Action ketorolac 10 mg tablet 10 mg PO TID PRN (Reason: pain) Qty: 15 0RF cyclobenzaprine 10 mg tablet 10 mg PO TID PRN (Reason: muscle spasm) Qty: 14 0RF Desitin 40 % paste 1 applic topical TID Qty: 57 0RF cetirizine 10 mg tablet 20 mg PO BEDTIME Qty: 40 0RF benzonatate 200 mg capsule 200 mg PO TID PRN (Reason: cough) Qty: 30 0RF albuterol sulfate 90 mcg/actuation HFA aerosol inhaler 2 puff inhalation Q6H PRN (Reason: shortness of breath or wheezing) Qty: 6.7 0RF Referrals: Miscellaneous,Doctor, MD [Primary Care Provider] - Stand Alone Forms: Patient Portal/API/Survey
--- NOTE | 2024-08-08 19:17 | DI.US.S_ITS ---
PROCEDURE: US ABDOMEN LIMITED INDICATIONS: RUQ PAIN TECHNIQUE: Real-time scanning was performed of the abdominal and retroperitoneal organs, with image documentation. COMPARISON: [facility], CT, CT ANGIO CHEST PE PROTOCOL, 08/08/2024, 17:16. [facility], CT, CT ABDOMEN PELVIS W CON, 04/04/2024, 18:34. FINDINGS: Liver: Measures 16.6 cm. Increased in echogenicity. Decreased sonographic penetration. Gallbladder: No gallstones identified. No wall thickening. No pericholecystic edema. Negative sonographic Majano's sign. Biliary ducts: Intrahepatic bile ducts are non-dilated. Extrahepatic bile duct caliber measures 7 mm. Normal is 6-7 mm or less in diameter, or 10 mm or less post-cholecystectomy. Pancreas: Not well seen due to bowel gas. Miscellaneous: No free abdominal fluid. IMPRESSION: 1. No acute cholecystitis demonstrated. No gallstones seen. 2. Increased hepatic echogenicity most consistent with hepatic steatosis. Other forms of hepatocellular disease could have similar appearance. Dictated by: Carlos Thompson M.D. on 08/08/2024 at 20:20 Approved by: Carlos Thompson M.D. on 08/08/2024 at 20:22
[2024-08-08 20:36] LABS: Troponin I 0.015 ng/mL (0.01-0.034)
== END 2024-08-08 22:32 | disposition home or self-care (01) ==
PROVIDERS: Emergency Medicine; Emergency Provider Family Medicine
DX: R07.1 Chest pain on breathing (principal); J01.80 Other acute sinusitis; B96.89 Other specified bacterial agents as the cause of diseases classified elsewhere; Z86.79 Personal history of other diseases of the circulatory system; E66.01 Morbid (severe) obesity due to excess calories; Z68.43 Body mass index [BMI] 50.0-59.9, adult
CPT/HCPCS: 0241U; 36415; 71045; 71275; 76705; 80053; 82550; 83605; 83690; 83735; 83880; 84145; 84484; 84703; 85025; 85379; 85610; 85730; 93005; 96374; 96375; 96376; 99284; J2270; J2405